=== PATIENT | male | born 1965 | race Caucasian/White ===

== ENCOUNTER 2019-11-06 10:15 | Outpatient (CLI) | payer OTHER, SELFPAY ==
--- NOTE | ~2019-11-06 | US_ITS ---
EXAMINATION: US renal BI DATE: 11/06/2019 10:48 INDICATION: Nonspecific abnormal renal function TECHNIQUE: Multiple ultrasound grayscale images of the kidneys were obtained. COMPARISON: None. FINDINGS: The right kidney measures 9.6 x 5.1 x 5.0 cm. The left kidney measures 10.5 x 4.6 x 5.8 cm. The kidne ys demonstrate normal echogenicity. There is no hydronephrosis in either kidney. No stones identifie d. Diffuse bladder wall thickening with mildly trabeculated mucosal surface which could be related to chronic outlet obstruction. Mild prostatomegaly measuring 3.7 x 3.1 x 3.1 cm. IMPRESSION: 1. Normal kidneys without hydronephrosis. 2. Mild trabecular bladder wall thickening likely related to chronic outlet obstruction from the mild ly enlarged prostate. Reviewed, dictated and finalized at location A. IMPRESSION: 1. Normal kidneys without hydronephrosis. 2. Mild trabecular bladder wall thickening likely related to chronic outlet obs truction from the mildly enlarged prostate.
== END 2019-11-06 10:16 | disposition home or self-care (01) ==
PROVIDERS: PCP Family Medicine; Visit Provider Internal Medicine Nephrology
DX: R94.4 Abnormal results of kidney function studies (principal); N32.9 Bladder disorder, unspecified
CPT/HCPCS: 76775

== ENCOUNTER 2020-01-25 08:03 | Outpatient (CLI) | payer OTHER, SELFPAY ==
--- NOTE | 2020-01-25 08:53 | ECG_ITS ---
Measurements Intervals Martin Rate: 67 P: 53 MO: 152 QRS: 42 QRSD: 98 T: 46 QT: 415 QTc: 440 Interpretive Statements SINUS RHYTHM NORMAL ECG Electronically Signed On 01-25-2020 9:10:30 CDT by Rafita Haney D.O.
[2020-01-25 09:19] LABS: Basophils Absolute Auto 0.1 K/mm3 (0.0-0.1); Basophils Percent Auto 0.8 % (0.2-1.2); Eosinophils Absolute Auto 0.3 K/mm3 (0-0.3); Eosinophils Percent Auto 4.1 % (0-4.4); Hematocrit 37.6 % (42.0-52.0); Hemoglobin 12.8 g/dL (14.0-18.0); Immature Granulocyte Absolute 0.03 K/mm3 (0.00-0.031); Immature Granulocyte Percent A 0.5 % (0-0.5); Lymphocytes Absolute Auto 1.98 K/mm3 (0.9-3.2); Lymphocytes Percent Auto 30.4 % (18.3-44.2); Mean Corpuscular Hemoglobin 32.7 pg (26-34); Mean Corpuscular Volume 95.9 fl (80-100); Mean Platelet Volume 9.7 fl (7.4-10.4); Monocytes Absolute Auto 0.5 K/mm3 (0.1-0.6); Monocytes Percent Auto 7.7 % (2.6-8.5); Neutrophils Absolute Auto 3.7 K/mm3 (1.3-6.7); Neutrophils Percent Auto 56.5 % (45.5-73.1); Platelet Count Result 240 k/mm3 (150-375); Red Blood Count 3.92 M/mm3 (4.6-6.20); Red Cell Distribution Width 12.9 % (11.5-14.5); White Blood Count 6.5 K/mm3 (4.5-10.0)
[2020-01-25 09:29] LABS: Hemoglobin A1C 5.3 % (<5.7)
[2020-01-25 09:33] LABS: Albumin Level 4.3 g/dL (3.5-5.1); Estimated Glomerular Filt Rate 48; Glucose 111 mg/dL (75-110)
[2020-01-25 09:38] LABS: Urine Cotinine POSITIVE
== END 2020-01-25 08:04 | disposition home or self-care (01) ==
PROVIDERS: PCP Family Medicine; Visit Provider Orthopaedic Surgery
DX: M17.0 Bilateral primary osteoarthritis of knee (principal); Z01.818 Encounter for other preprocedural examination
CPT/HCPCS: 36415; 80307; 82040; 82565; 82947; 83036; 85025; 86850; 86900; 86901; 87081; 93005

== ENCOUNTER 2020-01-25 10:12 | Outpatient (CLI) | payer OTHER, SELFPAY ==
--- NOTE | ~2020-01-25 | NM_ITS ---
EXAMINATION: NM monet stress w perfusion DATE: 01/25/2020 12:42 INDICATION: Preoperative cardiovascular exam with cardiac risk factors of hypertension and hyperlipid emia. TECHNIQUE: Rest images were obtained following intravenous administration of 8 mCi Tc99m tetrofosmin (Myoview). The patient was infused intravenously with Lexiscan (Regadenoson). Then, 27 mCi Tc99m tetr ofosmin (Myoview) was administered intravenously, and stress images were obtained. Data was reconstru cted into short axis and horizontal and vertical long axis SPECT images. Gated SPECT images were also obtained. COMPARISON: None. FINDINGS: There is no definite reversible or fixed perfusion abnormality to suggest ischemia or infar ction. There is normal left ventricular chamber size, wall motion and ejection fraction. Left ventr icular ejection fraction measures >70%. IMPRESSION: 1. Normal myocardial perfusion at rest and during stress. 2. Left ventricular ejection fraction measuring >70%. Reviewed, dictated and finalized at location A.
--- NOTE | 2020-01-25 11:01 | EST_ITS ---
Patient Info Name: Michael Garcia Age: 54 years : 1965 Gender: Male Ht: 68 in Wt: 196 lbs BSA: 2.09 m2 HR: 54 bpm BP: 102 / 61 mmHg Exam Date: 01/25/2020 11:42 AM Exam Location: [facility] Stress Patient Status: Outpatient Admit Date: 01/25/2020 Staff Ordering Physician: Michelle Castillo NP Attending Provider: RAFITA HANEY Exercise Technologist: Bhavya Carlos RDCS Exercise Physician: Rafita Haney DO Exam Type: CA stress monet w NM Study Info Indications - pre-op knee surgery A regadenoson stress test was performed. Summary 1. 1. Negative lexiscan stress test for ischemic ST changes by ECG criteria. 2. 2. Stable hemodynamics throughout the test. 3. 3. Nuclear scan to follow and will be reported separately. Please correlat with it. 4. 4. Patient informed of the above results. Protocol: Lexiscan Stress ECG Details Stage: REST Duration (min): 1 min : 13 sec HR (bpm): 53 SBP (mmHg): 102 DBP (mmHg): 61 Stage: REST Duration (min): 8 min : 41 sec HR (bpm): 57 SBP (mmHg): 102 DBP (mmHg): 61 Stage: STAGE 1 Duration (min): 0 min : 59 sec HR (bpm): 75 SBP (mmHg): 116 DBP (mmHg): 61 Stage: RECOVERY Duration (min): 1 min : 0 sec HR (bpm): 89 SBP (mmHg): 113 DBP (mmHg): 67 Stage: RECOVERY Duration (min): 2 min : 0 sec HR (bpm): 78 SBP (mmHg): 114 DBP (mmHg): 67 Stage: RECOVERY Duration (min): 3 min : 0 sec HR (bpm): 76 SBP (mmHg): 103 DBP (mmHg): 65 Stage: RECOVERY Duration (min): 3 min : 22 sec HR (bpm): 75 SBP (mmHg): 103 DBP (mmHg): 65 Rest HR: 57 bpm Peak HR: 93 bpm Rest Sys BP: 102 mmHg Peak Sys BP: 116 mmHg Max Pred HR: 164 bpm % Max Pred HR: 57 % Target HR: 139 bpm Max RPP: 10,788 bpm*mmHg Termination Reason: Completed protocol Cardiac Symptoms: SOB, stomach cramp, heaviness of legs and arms Total Time: 1 min : 0 sec Rest Dubon BP: 61 mmHg Peak Dubon BP: 61 mmHg Total Dose: 0.4 mg Resting ECG Sinus rhythm. Stress ECG No ST changes. Arrhythmias None. Report Signatures
== END 2020-01-25 10:13 | disposition home or self-care (01) ==
PROVIDERS: PCP Family Medicine; Visit Provider Nurse Practitioner
DX: Z01.810 Encounter for preprocedural cardiovascular examination (principal)
CPT/HCPCS: 78452; 93017; A9502; J2785

== ENCOUNTER 2020-03-21 08:07 | Outpatient (CLI) | payer OTHER, SELFPAY ==
[2020-03-21 08:36] LABS: Basophils Absolute Auto 0.1 K/mm3 (0.0-0.1); Basophils Percent Auto 0.8 % (0.2-1.2); Eosinophils Absolute Auto 0.1 K/mm3 (0-0.3); Eosinophils Percent Auto 1.6 % (0-4.4); Hematocrit 37.8 % (42.0-52.0); Immature Granulocyte Absolute 0.01 K/mm3 (0.00-0.031); Immature Granulocyte Percent A 0.2 % (0-0.5); Lymphocytes Absolute Auto 1.91 K/mm3 (0.9-3.2); Lymphocytes Percent Auto 30.1 % (18.3-44.2); Mean Corpuscular HGB Conc 34.4 g/dl (32-36); Mean Corpuscular Hemoglobin 32.6 pg (26-34); Mean Corpuscular Volume 94.7 fl (80-100); Mean Platelet Volume 9.7 fl (7.4-10.4); Monocytes Absolute Auto 0.4 K/mm3 (0.1-0.6); Monocytes Percent Auto 6.1 % (2.6-8.5); Neutrophils Absolute Auto 3.9 K/mm3 (1.3-6.7); Neutrophils Percent Auto 61.2 % (45.5-73.1); Platelet Count Result 274 k/mm3 (150-375); Red Blood Count 3.99 M/mm3 (4.6-6.20); Red Cell Distribution Width 12.1 % (11.5-14.5); White Blood Count 6.4 K/mm3 (4.5-10.0)
[2020-03-21 08:46] LABS: Albumin Level 4.3 g/dL (3.5-5.1); Estimated Glomerular Filt Rate 52; Glucose 125 mg/dL (75-110)
[2020-03-21 09:06] LABS: Urine Cotinine NEGATIVE
== END 2020-03-21 08:08 | disposition home or self-care (01) ==
LOC: ANHSURGERY 08:09
PROVIDERS: PCP Family Medicine; Visit Provider Orthopaedic Surgery
DX: M17.0 Bilateral primary osteoarthritis of knee (principal); Z01.812 Encounter for preprocedural laboratory examination
CPT/HCPCS: 80307; 82040; 82565; 82947; 85025; 86850; 86900; 86901; 87081

== ENCOUNTER 2020-03-29 02:43 | Outpatient (CLI) | payer OTHER, SELFPAY ==
[2020-03-29 23:12] LABS: SARS-CoV-2 RNA PCR Negative
== END 2020-03-29 02:44 | disposition home or self-care (01) ==
LOC: ANHCOVIDDT 02:43
PROVIDERS: PCP Family Medicine; Visit Provider Orthopaedic Surgery
DX: Z01.812 Encounter for preprocedural laboratory examination (principal); Z20.828 Contact with and (suspected) exposure to other viral communicable diseases
CPT/HCPCS: 87635; C9803; U0003

== ENCOUNTER 2020-04-01 00:36 | Day surgery (SDC) | payer OTHER, SELFPAY ==
[2020-01-25 08:13] VITALS: BMI 29.8
[2020-01-25 08:50] VITALS: BP 119/70; PULSE 71; RESP 18; TEMP 37.3; O2SAT 98
[2020-03-18 09:57] VITALS: BMI 29.8
[2020-04-01] VITALS (13 sets, daily range): BP systolic 117–159; BP diastolic 60–91; PULSE 73–107; RESP 11–18; TEMP 36.3–37.4; O2SAT 93–100
--- NOTE | ~2020-04-01 | XR_ITS ---
EXAMINATION: XR knee LT 2V DATE: 04/01/2020 10:30 INDICATION: Postoperative evaluation following left total knee arthroplasty. TECHNIQUE: Anteroposterior and lateral views of the left knee were obtained. COMPARISON: None. FINDINGS: Left total knee arthroplasty with patellar resurfacing appears well seated and in near anatomic align ment. No fractures identified. Expected postoperative subcutaneous and intra-articular gas. IMPRESSION: 1. Left total knee arthroplasty, negative for postoperative purposes. Reviewed, dictated and finalized at location B.
[2020-04-01] MEDS: LACTATED RINGERS 1,000 ML 30 ML IV CONT ×2 (06:50→10:07)
--- NOTE | 2020-04-01 07:02 | WPDANESEPPF ---
Anes - Initial Pre Proc Eval Procedure: Operation Date: 04/01/20 07:30 Proposed Procedures p Left Total Knee Arthroplasty, Right Knee Injection/Aspiration - Brendon Bai MD Date/Time: 04/01/20 07:02 Surgeon: Brendon Bai MD Pre Op Diagnosis: OA Bilateral Knee Patient Data Age: 54 Gender: M Height: 5 ft 8 in Weight: 89 kg Last Vital Signs Temp 37.3 C 01/25/20 08:50 Pulse 71 01/25/20 08:50 Resp 18 01/25/20 08:50 BP 119/70 01/25/20 08:50 Pulse Ox 98 01/25/20 08:50 Allergies Allergy/AdvReac Type Severity Reaction Status Date / Time codeine AdvReac Severe Nausea Verified 03/18/20 09:54 NSAIDS (Non-Steroidal AdvReac Unknown elevated Verified 03/30/20 09:20 Anti-Inflamma creatinine Home Medications Medication Instructions Recorded Confirmed Type aspirin 81 mg tablet,delayed 81 mg PO DAILY 06/01/19 03/21/20 History release acetaminophen 650 mg 1,300 mg PO Q12H PRN tablet 12/05/19 03/21/20 History tablet,extended release atorvastatin 20 mg tablet 20 mg PO DAILY #90 tablet 12/05/19 03/21/20 Rx omeprazole magnesium 20 mg 20 mg PO DAILY 12/05/19 03/21/20 History tablet,delayed release rivaroxaban 10 mg tablet 10 mg PO DAILY #13 tablet 01/11/20 03/21/20 Rx cholecalciferol (vitamin D3) 125 mcg PO DAILY 01/25/20 03/21/20 History tramadol 50 mg tablet 50 mg PO QID PRN #120 tablet 03/11/20 03/21/20 Rx irbesartan [Avapro] See Rx Instructions .ROUTE .COMPLEX 03/18/20 03/21/20 History baclofen 10 mg tablet 10 mg PO BID #90 tablet 03/25/20 Rx Patient hx anesthesia problems: none Family hx anesthesia problems: none PMFSH Past Medical History Medical History BMI 27.0-27.9,adult Degenerative arthritis of knee, bilateral Encounter for screening for malignant neoplasm of prostate Hyperlipidemia Hypertension Knee pain, bilateral Lumbar disc disease Renal insufficiency Surgical History Surgical History History of cataract surgery Bilateral History of repair of rotator cuff 2011 Family History Family History Father Hypertension Family history of diabetes mellitus in first degree relative Mother Family history of diabetes mellitus in first degree relative Social History Social History Smoking packs per day: 1 Smoking cigarettes per day: 20.0 Years smoked: 11 Smoking pack-years: 11.00 Smoking status: Former smoker Tobacco type: cigarettes Second hand tobacco smoke exposure: Yes ([employer]) Smoking end date: 09/20/19 Additional smoking assessment comments: STATES NO FORM OF TOBACCO USUAGE SINCE SURGERY CANCELLED FOR JANUARY 2020 Alcohol intake: current Living arrangements: with family Additional living arrangements comments: & son 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 Questions were solicited and answers provided to the satisfaction of the patient/family/POA.
[2020-04-01] MEDS: TRANEXAMIC ACID 1,000MG/ISO100 1,000 MG/100 ML BAG 200 MG IVPB (07:04)
[2020-04-01] MEDS: ACETAMINOPHEN 500 MG TABLET 1000 MG PO ×3 (07:13→22:21)
--- NOTE | 2020-04-01 07:14 | WPDHPUPDATE1 ---
History and Physical Update Update Date/Time: 04/01/20 07:14 History and Physical has been reviewed, including an updated exam of the patient. There are NO changes in the patient's condition. Risks, benefits, and alternatives have been discussed and questions answered. Patient agrees to proceed with procedure.
[2020-04-01] MEDS: ceFAZolin 2 GM/D5W 50 ML 2 GM/50 ML BAG IVPB ×3 (07:27→22:21)
--- NOTE | 2020-04-01 07:28 | WPDANESPNB ---
Anes - Peripheral Nerve Block Date/Time: 04/01/20 07:28 I have discussed with the patient/family/POA the placement of a peripheral nerve block for post-operative pain management, including associated risks, benefits, complications, and side effects. Alternative methods of post-operative analgesia were detailed. Questions were solicited and answers provided to the satisfaction of the patient/family/POA. Time-Out: A pre-procedural Time-Out was completed immediately before starting the procedure and confirmed: Patient Identification, Site, Procedure, Patient Position and the Availability of Requisite Equipment. Clinical Indications: Acute post-operative pain management requested by the operative surgeon. Nerve Block Insertion Note Anes-nerve block: adductor canal left Patient position: supine Skin prep: chlorhexidine Needle: 22 gauge, stimulating, insulated echogenic needle. Needle length: 80 mm Technique: ultrasound Technique comment: mid2mg,[id number] Injectate: bupivacaine 0.5% with epi 5 mcg/ml (30ml) Observations: tolerated well Complications: none Procedure start time:: 715 Procedure end time:: 722
[2020-04-01] MEDS: methylPREDNISolone ACETATE 80 MG/ML VIAL IM (07:35)
[2020-04-01] MEDS: BUPIVACAINE/EPINEPHRINE 0.25% 50 ML VIAL INFILTRATE (08:03)
[2020-04-01] MEDS: TRANEXAMIC ACID 1,000 MG/10 ML AMPUL 1000 MG TOPICAL (08:04)
[2020-04-01] MEDS: GENTAMICIN BONE CEMENT REFOBACIN 1 EACH TOPICAL (08:59)
[2020-04-01] MEDS: ceFAZolin SODIUM 1 GM VIAL IV PUSH (09:35)
--- NOTE | 2020-04-01 10:02 | PM.PROC ---
Procedure Note - Detailed Date of procedure: 04/01/20 Pre-op diagnosis: OA Bilateral Knee Post-op diagnosis: same Procedure performed: Left total knee replacement; intra-articular injection right knee Description of procedure: The patient was identified and proper site identified. In the preop holding area the anesthesia team performed a left knee sub sartorial block after which the patient was taken to the operating room and transferred to the OR table positioning supine taking care to pad the torso and extremities. After general anesthetic induction and intubation a nonsterile tourniquet was placed high on the left thigh. While this was being done the right knee was injected intra-articularly using sterile technique with 2 mL of 1% lidocaine and 80 mg of Depo-Medrol. The left lower extremity was prepped and draped in the usual sterile fashion. The extremity was exsanguinated and with the knee flexed tourniquet was inflated to 300 mmHg remaining up for approximately 71 minutes. An anterior midline incision was made and a modified medial parapatellar approach was used. Infra and suprapatellar fat pads were excised. Patella was resected leaving 15 mm thickness and prepared for the size 34 round three peg component. Using the intramedullary guide the distal femur was cut in the proper orientation for the size 67.5 femoral component. Using the extramedullary guide the tibia was cut perpendicular to the long axis protecting collateral ligaments and popliteal structures. It was sized to a 71. Flexion and extension gaps were balanced. Trial reduction was undertaken and the weight-bearing line was noted to passed through the center of the joint. Proximal tibia was drilled and punched in the proper orientation for the real component. Trial components were removed. The bone surfaces were washed with pulsatile lavage and dried. The real components were cemented simultaneously. The knee was held in extension and the patella held clamped until the cement had cured. Excess cement was removed from the joint. After trialing it was determined that the 11 mm insert gave full range of motion from 0-125 degrees of flexion and the patella tracked in the femoral groove with no lift-off. After final lavage the joint, the real size 11 insert was placed and secured with a locking bar. A Betadine and saline wash was placed into the wound and allowed to sit for approximately 3 minutes and then evacuated. Periarticular tissues were infiltrated with 60 cc of the arthroplasty solution. 1 g of tranexamic acid was left in the wound. The extensor mechanism was repaired with #2 Vicryl suture and 0 looped PDS suture. Subcu was reapproximated with two 0 strata fix and tissue adhesive for the skin. A sterile dressing was applied. He tolerated the procedure well, was awakened and extubated, transferred to the bed and was taken to recovery area in stable condition. There were no known intraoperative complications. Perioperative antibiotics were administered. Anesthesia: GLMA Surgeon: Brendon Bai MD Pouch Making Machine Operator: Yris Mccord Estimated blood loss (mL): 150 Tourniquet time (min): 71 Drains: No Packing: No Pathology: none sent Complications: No immediate complications Condition: stable Disposition: PACU
[2020-04-01] MEDS: fentaNYL CITRATE INJ (*CRX) 100 MCG/2 ML VIAL 25 MCG IV PUSH ×6 (10:25→11:10)
--- NOTE | 2020-04-01 11:33 | PC.NURSE ---
This patient, Michael Garcia, was admitted to Medical Room 248-. Patient/family oriented to hospital policies and general routines including ID bracelet, bed and alarms, visiting hours, pain management, procedures, bathroom and other care routines, personal items, smoking policy, room service/diet, and visiting hours. Valuables list has been completed. Information on how to activate the Rapid Response Team has been discussed. Patient/Family are encouraged to report perceived risks to care and to ask questions if they do not understand what they are told or what they should do.
[2020-04-01] MEDS: oxyCODONE HCL (*CRX) 5 MG TAB IR PO ×3 (13:42→20:20)
[2020-04-01] MEDS: DOCUSATE SODIUM 100 MG CAPSULE PO (18:28)
--- NOTE | 2020-04-01 20:00 | PM.IMCN ---
Assessment and Plan Assessment and plan (1) S/P total knee arthroplasty: Code(s): Z96.659 - Presence of unspecified artificial knee joint Status: Acute Assessment and Plan: postop care per Dr. purdy. DVT prophylaxis per Dr. ortez it looks like he will be placed on Xarelto. PT OT per Dr. purdy. Pain management per Dr. purdy. (2) Hypertension: Code(s): I10 - Essential (primary) hypertension Status: Chronic Assessment and Plan: Patient's blood pressure tonight was 159/85 so I did resume his irbesartan (3) Hyperlipidemia: Code(s): E78.5 - Hyperlipidemia, unspecified Status: Chronic Assessment and Plan: atorvastatin Was resumed. HPI Data of Consult Consult date: 04/01/20 Requesting Physician: Brendon Purdy MD Primary Care Provider: Isabella Pro MD Consult Narrative Narrative: Michael Garcia is a 54 year old male Who has a history of bilateral primary Osteoarthritis of bilateral knees. Patient had preop workup to have the left total knee replaced today and it is going to have the right knee performed later. The patient had a left total knee arthroplasty today per Dr. purdy please see the operative note. Please see anesthesia note as well. The patient did have a nerve block. He has already been up and walking around without any problems. The patient stated that he had a Lexiscan which was negative for preop workup. Estimated blood loss was 150 no immediate complications were noted on the operative report. I think orthopedics for the opportunity to consult on this pleasant gentleman. The patient stated that he has quit smoking and is doing well at this smoking cessation. the patient stated that he is tried conservative measures such as having his knees drained and exercises and cortisol shots. Patient stated with essentially [id number]. He was having difficulty moving with daily life. 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 Date of consult is 04/01/2020 Review of Systems Review of Systems: All systems reviewed & are unremarkable except as noted in HPI and below Constitutional: Constitutional: Reports as per HPI and Reports no additional constitutional complaints Eyes: Eyes: Reports as per HPI and Reports no additional eye complaints ENT: Reports system reviewed and no additional complaints, except as documented and Reports Normal hearing present Cardiovascular: Cardiovascular: Reports no additional cardiovascular complaints Respiratory: Respiratory: Reports no additional respiratory complaints and Reports no additional respiratory complaints Gastrointestinal: Gastrointestinal: Reports as per HPI and Reports no additional gastrointestinal complaints Musculoskeletal: Musculoskeletal: Reports no additional musculoskeletal complaints Integumentary/Breasts: Skin/Breast: Reports system reviewed and no additional complaints, except as docu and Reports as per HPI Neurologic: Reports system reviewed and no additional complaints, except as documented, Reports as per HPI and Reports Normal hearing present Psychiatric: Psychiatric: Reports no additional psychiatric complaints and Reports as per HPI Endocrine: Endocrine: Reports no additional endocrine complaints Hematologic/Lymphatic: Hematologic/Lymphatic: Reports no additional hematologic/lymphatic complaints Allergic/Immunologic: Allergic/Immunologic: Reports no additional allergic/immunologic complaints PMFSH Past Medical History Medical History BMI 27.0-27.9,adult Degenerative arthritis of knee, bilateral Encounter for screening for malignant neoplasm of prostate Hyperlipidemia Hypertension Knee pain, bilateral Lumbar disc disease Renal insufficiency Surgical History Surgical History (Updated 04/01/20 @ 20:09 by Theodora Bowman NP) History of cataract surgery Bilateral History of repair of rotator cu
[2020-04-02] MEDS: oxyCODONE HCL (*CRX) 5 MG TAB IR PO ×4 (00:05→12:31)
[2020-04-02 00:45] VITALS: BP 156/82; PULSE 89; RESP 16; TEMP 37.2; O2SAT 96
[2020-04-02 04:59] VITALS: BP 107/57; PULSE 86; RESP 16; TEMP 37.2; O2SAT 98
[2020-04-02] MEDS: ACETAMINOPHEN 500 MG TABLET 1000 MG PO (05:38)
[2020-04-02 06:05] LABS: Basophils Percent Auto 0.1 % (0.2-1.2); Hematocrit 32.9 % (42.0-52.0); Hemoglobin 11.1 g/dL (14.0-18.0); Immature Granulocyte Absolute 0.08 K/mm3 (0.00-0.031); Immature Granulocyte Percent A 0.5 % (0-0.5); Lymphocytes Absolute Auto 1.27 K/mm3 (0.9-3.2); Mean Corpuscular HGB Conc 33.7 g/dl (32-36); Mean Corpuscular Hemoglobin 32.3 pg (26-34); Mean Corpuscular Volume 95.6 fl (80-100); Mean Platelet Volume 10.1 fl (7.4-10.4); Monocytes Absolute Auto 0.5 K/mm3 (0.1-0.6); Monocytes Percent Auto 3.1 % (2.6-8.5); Neutrophils Percent Auto 88.3 % (45.5-73.1); Platelet Count Result 211 k/mm3 (150-375); Red Blood Count 3.44 M/mm3 (4.6-6.20); Red Cell Distribution Width 12.2 % (11.5-14.5); White Blood Count 15.9 K/mm3 (4.5-10.0)
[2020-04-02] MEDS: ceFAZolin 2 GM/D5W 50 ML 2 GM/50 ML BAG IVPB (06:07)
[2020-04-02 06:31] LABS: Anion Gap 7 mmol/L (8-16); Blood Urea Nitrogen 24 mg/dL (9-20); Calcium 9.1 mg/dL (8.4-10.2); Carbon Dioxide 27 mmol/L (22-30); Chloride 101 mmol/L (98-107); Estimated CRCL calculation 62 ml/min; Estimated Glomerular Filt Rate 57; Glucose 137 mg/dL (75-110); Potassium 4.4 mmol/L (3.4-5.0); Sodium 135 mmol/L (137-145)
--- NOTE | 2020-04-02 07:28 | PM.PNORT ---
Progress Note: A&P Assessment and Plan (1) S/P total knee arthroplasty: Qualifiers: Laterality: left Qualified Code(s): Z96.652 - Presence of left artificial knee joint Code(s): Z96.659 - Presence of unspecified artificial knee joint Status: Acute (2) Degenerative arthritis of knee, bilateral: Qualifiers: Osteoarthritis type: primary Qualified Code(s): M17.0 - Bilateral primary osteoarthritis of knee Code(s): M17.0 - Bilateral primary osteoarthritis of knee Status: Chronic Assessment and Plan: 54-year-old male postop day one left knee replacement, right knee injection and doing very well. Surgery was discussed with him in detail. Questions answer and instructions reviewed. Plan home today after second physical therapy. Follow up with me in the office in two weeks. Time Spent With Patient Time with patient: 15 - 25 minutes Subjective Subjective Date/Time Seen: 04/02/20 07:28 Post Op day: 1 Principal diagnosis: Status post left total knee replacement, right knee injection Interval history: 54-year-old male who is postop day one left knee replacement, right knee injection. Uneventful overnight. Tolerated his first therapy just fine yesterday. Review of Systems Constitutional: Constitutional: Denies chills and Denies fever(s) Eyes: Eyes: Reports no additional eye complaints ENT: Reports system reviewed and no additional complaints, except as documented Cardiovascular: Cardiovascular: Denies chest pain and Denies dyspnea on exertion Respiratory: Respiratory: Reports no additional respiratory complaints and Denies dyspnea on exertion Gastrointestinal: Gastrointestinal: Denies abdominal pain and Denies bloating Exam Const: General: cooperative, no acute distress and alert Nutritional Appearance: well nourished Orientation/consciousness: patient oriented x3 Limitations: no limitations HENMT: Head: normal to inspection Ears: hearing grossly normal bilaterally Face and sinus: face symmetric Mouth: Yes moist mucous membranes Teeth and gingiva: fair dentition Eyes: Alignment and Position: alignment normal and position normal Sclera: sclerae normal Neck: Neck: normal visual inspection Chest: Chest palpation & inspection: normal inspection of the chest Resp: Effort & Inspection: normal respiratory effort and able to speak in complete sentences GI: Inspection: other ( Nondistended) Skin: General skin exam: normal color Rashes: no rashes Neuro: General: patient oriented x3 Cognition (Neuro): normal cognition Speech: normal speech Gait exam (Neuro): Other gait observations present Motor exam (neuro): Other motor observations present ( neurovascular grossly intact left lower extremity) Sensory Exam: normal sensation Extrem: General: normal to inspection and other Other: Exam of the left knee wound shows it to be dry. Very little swelling and no erythema about the left knee. Right knee exam reveals no swelling. There is some crepitus, but no tenderness. Psych: Appearance: grossly normal Mental Status: mental status grossly normal Objective Data Vital Signs Vital Signs: Vital Signs - 24 hr 04/01/20 08:08 04/01/20 10:07 04/01/20 10:15 Temperature 99.3 F 98.3 F Pulse Rate 83 101 H 105 H Respiratory Rate 18 12 11 L Blood Pressure 138/80 146/83 H 150/85 H Pulse Oximetry 98 97 97 04/01/20 10:30 04/01/20 10:45 04/01/20 10:47 Temperature Pulse Rate 107 H 105 H Respiratory Rate 16 16 Blood Pressure 128/91 H 152/88 H 122/81 Pulse Oximetry 96 93 04/01/20 11:00 04/01/20 11:25 04/01/20 11:40 Temperature 97.6 F 97.4 F L Pulse Rate 90 95 77 Respiratory Rate 12 18 16 Blood Pressure 117/60 145/86 H 144/90 H Pulse Oximetry 96 97 98 04/01/20 12:10 04/01/20 18:00 04/01/20 20:00 Temperature 97.6 F 98.4 F Pulse Rate 73 96 90 Respiratory Rate 18 18 16 Blood Pressure 141/84 H 159/85 H Pulse Oximetry 97 100 97 04/01/20 20:5
--- NOTE | 2020-04-02 07:37 | PM.DS ---
DS: Admitting Diagnosis Admitting Diagnosis Admitting Diagnosis: OA Bilateral Knee DS: Discharge Diagnosis Discharge Diagnosis (1) S/P total knee arthroplasty: Qualifiers: Laterality: left Qualified Code(s): Z96.652 - Presence of left artificial knee joint Code(s): Z96.659 - Presence of unspecified artificial knee joint Status: Acute (2) Degenerative arthritis of knee, bilateral: Qualifiers: Osteoarthritis type: primary Qualified Code(s): M17.0 - Bilateral primary osteoarthritis of knee Code(s): M17.0 - Bilateral primary osteoarthritis of knee Status: Chronic Assessment and Plan: Patient has outpatient therapy starting in one week. He is going to exercise on his own between now and then. He has a follow-up with me in approximately two weeks. He was instructed to call with any questions prior to follow-up. DS: Summary Hospital Course Reason for hospitalization: Postoperative pain control and to initiate physical therapy Hospital Course: Following the patient's surgery he was admitted to the floor to initiate physical therapy and also for pain control. He had has done very well and is going to be discharged home. He has follow-up with me in two weeks. Status at Discharge Functional status at discharge: uses cane/walker Time Spent with Patient Time attestation: Total time spent providing and/or coordinating discharge services: Exam Const: General: cooperative, no acute distress and alert Nutritional Appearance: well nourished Orientation/consciousness: patient oriented x3 Limitations: no limitations HENMT: Head: normal to inspection Ears: hearing grossly normal bilaterally Face and sinus: face symmetric Mouth: Yes moist mucous membranes Teeth and gingiva: fair dentition Eyes: Alignment and Position: alignment normal and position normal Sclera: sclerae normal Neck: Neck: normal visual inspection Chest: Chest palpation & inspection: normal inspection of the chest Resp: Effort & Inspection: normal respiratory effort and able to speak in complete sentences GI: Inspection: other ( Nondistended) Skin: General skin exam: normal color Rashes: no rashes Neuro: General: patient oriented x3 Cognition (Neuro): normal cognition Speech: normal speech Gait exam (Neuro): Other gait observations present Motor exam (neuro): Other motor observations present ( neurovascular grossly intact left lower extremity) Sensory Exam: normal sensation Extrem: General: normal to inspection and other Other: Exam of the left knee wound shows it to be dry. Very little swelling and no erythema about the left knee. Right knee exam reveals no swelling. There is some crepitus, but no tenderness. Psych: Appearance: grossly normal Mental Status: mental status grossly normal DS: Data Data Completed and Pending Labs on day of discharge: Labs from last 24 hours 04/02/20 04/02/20 05:15 05:15 WBC 15.9 H RBC 3.44 L Hgb 11.1 L Hct 32.9 L MCV 95.6 MCH 32.3 MCHC 33.7 RDW 12.2 Plt Count 211 MPV 10.1 Immature Gran % (Auto) 0.5 Neut % (Auto) 88.3 H Lymph % (Auto) 8.0 L [place] % (Auto) 3.1 Eos % (Auto) 0.0 Baso % (Auto) 0.1 L Lymph # (Auto) 1.27 [place] # (Auto) 0.5 Eos # (Auto) 0.0 Baso # (Auto) 0.0 Abs Immat Gran (auto) 0.08 H Absolute Neuts (auto) 14.0 H Absolute Nucleated RBC 0.0 Nucleated RBC % 0.0 Sodium 135 L Potassium 4.4 Chloride 101 Carbon Dioxide 27 Anion Gap 7 L BUN 24 H Creatinine 1.30 Estim Creat Clear Calc 62 Estimated GFR 57 L Glucose 137 H Calcium 9.1 Discharge Plan Discharge Patient Disposition: Home, Self-Care Discharge Instructions: 3 times daily for 20 minutes each time, reclining in bed with ice packs over the incision and a pillow underneath the affected calf. Your wound is glued so it is okay to get into the shower and get the wound wet. Be sure to read through a
--- NOTE | 2020-04-02 08:01 | WPDANESPN ---
Anes - Prog Note Post-Op Date/Time: 04/02/20 08:01 Cardiovascular status: normal Respiratory status: normal Airway patency: baseline Mental status: baseline Post-Op hydration status: normal Vital Signs: Last Vital Signs Temp 37.2 C 04/02/20 04:59 Pulse 86 04/02/20 04:59 Resp 16 04/02/20 04:59 BP 107/57 L 04/02/20 04:59 Pulse Ox 98 04/02/20 04:59 Pain Score (VAS): 0 I/O: Intake & Output 04/01/20 04/02/20 04/02/20 23:59 07:59 15:59 Intake Total 490 300 Output Total 1200 Balance 490 -900 Laboratory Tests 04/02/20 05:15 04/02/20 05:15 04/02/20 04/02/20 05:15 05:15 WBC 15.9 H RBC 3.44 L Hgb 11.1 L Hct 32.9 L MCV 95.6 MCH 32.3 MCHC 33.7 RDW 12.2 Plt Count 211 MPV 10.1 Immature Gran % (Auto) 0.5 Neut % (Auto) 88.3 H Lymph % (Auto) 8.0 L [place] % (Auto) 3.1 Eos % (Auto) 0.0 Baso % (Auto) 0.1 L Lymph # (Auto) 1.27 [place] # (Auto) 0.5 Eos # (Auto) 0.0 Baso # (Auto) 0.0 Abs Immat Gran (auto) 0.08 H Absolute Neuts (auto) 14.0 H Absolute Nucleated RBC 0.0 Nucleated RBC % 0.0 Sodium 135 L Potassium 4.4 Chloride 101 Carbon Dioxide 27 Anion Gap 7 L BUN 24 H Creatinine 1.30 Estim Creat Clear Calc 62 Estimated GFR 57 L Glucose 137 H Calcium 9.1 Post-procedural complaints: none Patient Feedback: Patient satisfied with anesthetic care.
[2020-04-02] MEDS: DOCUSATE SODIUM 100 MG CAPSULE PO (08:16)
[2020-04-02] MEDS: PANTOPRAZOLE 40 MG TABLET PO (08:17)
[2020-04-02] MEDS: CHOLECALCIFEROL 1,000 UNITS TABLET 5000 UNITS PO (08:17)
[2020-04-02] MEDS: ATORVASTATIN 20 MG TABLET PO (08:17)
[2020-04-02] MEDS: polyethylene glycoL 3350 17 GM POWD.PACK PO (08:17)
--- NOTE | 2020-04-02 09:55 | PM.IMPN ---
Progress Note: A&P Assessment and Plan (1) S/P total knee arthroplasty: Qualifiers: Laterality: left Qualified Code(s): Z96.652 - Presence of left artificial knee joint Code(s): Z96.659 - Presence of unspecified artificial knee joint Status: Acute Assessment and Plan: He is POD #1 left total knee arthroplasty by Dr. Bai. Patient tolerated the procedure well. Pain is well-controlled. He has participated with PT/OT. He will follow up with Dr. Bai in 2 weeks. Continue xarelto per Dr. Bai. (2) Hypertension: Code(s): I10 - Essential (primary) hypertension Status: Chronic Assessment and Plan: Blood pressures had been mildly elevated in the 150s systolic, which is likely due to pain and holding of antihypertensive agent. Irbesartan was resumed and will be continued. Blood pressure well controlled today. (3) Hyperlipidemia: Code(s): E78.5 - Hyperlipidemia, unspecified Status: Chronic Assessment and Plan: Continue atorvastatin. Additional Plan Continue MiraLax and Colace in light of pain medication to prevent opioid induce constipation. Patient will be discharged home today, per Dr. Bai. He is stable from medical standpoint. Thank you for allowing me to participate in this patient's care. Patient should continue home medications. We discussed continuing MiraLax and Colace at home, especially while on pain medications, to ensure regular bowel movements. Subjective Date/time seen: 04/02/20 09:55 Interval history: Date of service: 04/02/2020 Michael alonzo is a 54-year-old male with a history degenerative arthritis now s/p left knee replacement, hyperlipidemia, and hypertension who is seen in follow-up for left total knee arthroplasty. He reports that he is feeling well today. He will be going home this afternoon after therapy. He has been participating in therapy and feels he is doing well. He transfers with contact guard only. His pain is well controlled at this time. His appetite has been good. He has been sleeping well. His last BM was 2 days ago. He is passing flatus. He denies urinary symptoms. He denies SOB, cough, chest pain, or palpitations. Denies abdominal pain, cramping, bloating, nausea, vomiting, fever, chills, dizziness, lightheadedness, weakness, bleeding, bruising. He has no additional concerns at this time. Review of Systems Review of Systems: Narrative: Twelve systems reviewed with pertinent positives and negatives as per HPI. Exam Narrative: Exam Narrative: Mr. Garcia is a well nourished, well appearing 54-year-old male who is sitting in a chair by the bedside. He appears comfortable and is in NARD. HR 86, BP 107/57, R 16, T 98.9?, 98% on room air Neuro: awake, alert and oriented x4, speech clear, no focal neuro deficits noted HEENMT: normocephalic, atraumatic, EOMI, sclerae anicteric, moist oral mucosa, tongue midline, nares patent Neck: supple, no lymphadenopathy Respiratory: clear to auscultation bilaterally, nonlabored breathing Cardio: regular rate, regular rhythm with S1-S2 Abdomen: protuberant, normoactive bowel sounds, soft, nontender to palpation, no rigidity or guarding Extremities: right knee in brace, left knee in brace with ice, soft, no edema, erythema, cyanosis, clubbing, or tenderness to palpation, PT pulses 2+ bilaterally Skin: no rashes or lesions, warm and dry Psych: appropriate mood and affect, judgment and insight intact Objective Data Vital Signs Vital Signs: Vital Signs - 24 hr 04/01/20 10:07 04/01/20 10:15 04/01/20 10:30 Temperature 98.3 F Pulse Rate 101 H 105 H 107 H Respiratory Rate 12 11 L 16 Blood Pressure 146/83 H 150/85 H 128/91 H Pulse Oximetry 97 97 96 04/01/20 10:45 04/01/20 10:47 04/01/20 11:00 Temperature Pulse Rate 105 H 90 Respiratory Rate 16 12 Blood Pressure 152/88 H 122/81 117/60 Pulse Oximetry 93 96 04/01/20 11:25 04/01/20 11:40 04/01/20 12:10 Te
[2020-04-02 10:00] VITALS: BP 151/75; PULSE 85; RESP 16; TEMP 37.1; O2SAT 99
[2020-04-02] MEDS: IRBESARTAN 150 MG TABLET 300 MG PO (11:45)
== END 2020-04-02 13:45 | disposition home or self-care (01) ==
LOC: ANHSURGERY 06:20 → ANH2MED 11:19
PROVIDERS: PCP Family Medicine; Visit Provider Orthopaedic Surgery
PROC: (CPT 27447; principal; 2020-04-01 07:30)
DX: M17.0 Bilateral primary osteoarthritis of knee (principal); G89.18 Other acute postprocedural pain; I10 Essential (primary) hypertension; E78.5 Hyperlipidemia, unspecified; Z79.01 Long term (current) use of anticoagulants; Z79.82 Long term (current) use of aspirin; Z87.891 Personal history of nicotine dependence
CPT/HCPCS: 27447; 20610; 64447; 36415; 73560; 80048; 85025; 87635; 97110; 97116; 97161; 97165; 97530; A9270; C1713; C1776; C9803; J0131; J0690; J1040; J1100; J2250; J2405; J2704; J3010; J7120; U0003

== ENCOUNTER 2020-05-29 10:00 | Outpatient (RCR) | payer OTHER, SELFPAY ==
--- NOTE | 2020-04-08 11:11 | PTOPEVAL ---
Thank you for referring Michael Garcia to [facility].? The patient is scheduled to be seen for therapy? 3x/week for 2 weeks then 2 x/week for 2 weeks (total of 4 weeks followed by re-assess for further therapy needs). Please review, sign, date and return this plan of care JUANJO. I agree with and certify that the following plan of care is medically necessary. Referring Physician Date Attending Provider: Brendon Bai MD Evaluation Outpatient Past Medical History Neurological History Hx Neurological Disorders No Significant History Cardiovascular History Hx Hypercholesterolemia Yes Hx Hypertension Yes Hx Other Cardiac Disorders Yes: WALKS 10,000 STEPS DAILY Respiratory History Hx Respiratory Disorders No Significant History Gastrointestinal History Hx Gastroesophageal Reflux Disease Yes Genitourinary History Hx Other Genitourinary Disorders Yes: SEES DR DORAN ELEVATED CREATININE D/T NSAIDS-10/25/2019 FF[facility] NOTE ON CHART Musculoskeletal History Hx Arthritis Yes: GENERALIZED Hx Back Pain Yes Hx Orthopedic Surgery Yes: 2010 RT ROTATOR CUFF REPAIR Hx Other Musculoskeletal Disorders Yes: BILAT OA KNEES Hematological History Hx Hematological Disorders No Significant History Endocrine History Hx Endocrine Disorders No Significant History HEENT History Hx Cataracts Yes: BILAT REMOVED Hx Other HEENT Disorders Yes: READING GLASSES Integumentary History Hx Skin Disorders No Significant History Reproductive History Hx Reproductive Disorders No Significant History Psychosocial History Hx Psychiatric Disorders No Significant History Pain History Has Past Pain Affected Your Daily Life Yes: KNEES Anesthesia History Hx Anesthesia Reactions No Significant History Diagnosis left TKA Onset 04/01/2020 Subjective Information Demarcus is here today 7 days post Query Text:As Reported By Patient/ op left TKA. He reports he is Family doing well. There is a significant amount of brusing. Working on knee extension and on edema. States that he understands the need to promote left knee extension Prior Level of Function Home Setting Environmental Barriers Railing, None,Stairs, Greater than 4 Pain Assessment Timing of Pain Assessment Timing of Pain Assessment Assessment Pain Scale Pain Scale Used Numeric (1 - 10) Self Report Pain Assessment Left Knee(s) Reported Pain Level 5 Pain Description Aching,Tightness Pain Frequency Acute,Continuous Lowest Pain
--- NOTE | 2020-05-01 10:55 | PTOPEVAL ---
PHYSICAL THERAPY PLAN OF CARE UPDATE AND PROGRESS REPORT Thank you for referring Michael Garcia to [facility].? The patient is scheduled to be seen for therapy? 2x/week for 4 weeks. Please review, sign, date and return this plan of care JUANJO. I agree with and certify that the following plan of care is medically necessary. Referring Physician Date Attending Provider: Brendon Bai MD Progress Diagnosis left TKA Onset 04/01/2020 Subjective Information Demarcus is here today 4weeks post Query Text:As Reported By Patient/ op left TKA. Just came from Family his doctor's appointment and doctor was pleased with ROM. Overall, continues to do well. Continues to walk with a cane. Self Report Pain Assessment Left Knee(s) Reported Pain Level 3 Pain Description Tightness Pain Score Pain Score 3: Self Report Interventions Used Interventions Used By Clinicians Electrical Stimulation, Exercise,Heat Lower Extremity Range of Motion Knee Range of Motion Left Knee Flexion Range of Motion - Active 103 Knee Flexion Range of Motion - Passive 110 Knee Extension Range of Motion - Active -3 Query Text: Lower Extremity Muscle Strength Testing Knee Strength Left Knee Flexion Strength 4 Good Knee Extension Strength 2+ Poor + Extremity Circumference Assessment Circumference Assessment Location Left 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[employer]) suprapatellar Circumference (cm) 41 Noninvolved Side Circumference (cm) 37 Balance Assessment Time Up Go (TUG) Timed Up and Go Test (TUG) (Seconds) 15 Assistive Devices None 5 Time Sit to Stand Time in Seconds 16.22 Gait Assessment Gait Pattern Assessment Gait Pattern Antalgic Gait Gait Pattern Observed Decreased Weight Shift - Left, Hip Hike - Left Other Gait Observations decreased left knee flexion in swing phase 2 Minute Walk Total Distance Walked (feet) 316 2 Minute Walk Gait Speed Score (feet/ 2.63 second) 2 Minute Walk Test Comments with [facility] PT Clinical Summary Michael is a 54 yo male presenting to outpatient physical therapy 4weeks s/p left TKA. Demarcus is rehabilitating well. He continues to present today with impaired gait pattern, impaired ROM, and limited
--- NOTE | 2020-05-29 10:52 | PTOPEVAL ---
PHYSICAL THERAPY DISCHARGE NOTE Thank you for referring Michael Garcia to [facility].? Please review, sign, date and return this plan of care JUANJO. I agree with and certify that the following plan of care is medically necessary. Referring Physician Date Attending Provider: Brendon Bai MD Discharge Diagnosis left TKA Onset 04/01/2020 Subjective Information Demarcus is here today 8weeks post Query Text:As Reported By Patient/ op left TKA. Doctor is Family pleased with ROM and states he can cease cane if he would like. Self Report Pain Assessment Left Knee(s) Reported Pain Level 1 Pain Description Tightness Pain Score Pain Score 1: Self Report Interventions Used Interventions Used By Clinicians Exercise,Ice Lower Extremity Range of Motion Knee Range of Motion Left Knee Flexion Range of Motion - Active 118 Knee Extension Range of Motion - Active -1 Query Text: Lower Extremity Muscle Strength Testing Knee Strength Left Knee Flexion Strength 5 Normal Knee Extension Strength 4 Good Palpation Assessment Palpation Palpation bruising has subsided; mild to moderate tenderness noted to lateral proximal gastroc head - no warmth, redness, or swelling noted and physician is aware Balance Assessment Time Up Go (TUG) Timed Up and Go Test (TUG) (Seconds) 9 Assistive Devices None 5 Time Sit to Stand Time in Seconds 11.2 Gait Assessment 2 Minute Walk Total Distance Walked (feet) 522 2 Minute Walk Gait Speed Score (feet/ 4.35 second) 2 Minute Walk Test Comments right knee is sore Stair Climbing Assessment Stair Climbing Assessment Stair Climbing Assistive Devices Railings Weight Bearing Status - Left Full Weight Bearing Status - Right Full Number of Steps Climbed (Steps) 4 Number of Repetitions (Repetitions) 4 Technique Alternating Steps Stair Climbing Direction Both Up and Down Stair Climbing Ability Independent PT Clinical Summary Michael is a 54 yo male working with outpatient physical therapy 8weeks s/p left TKA. Demarcus is rehabilitating well. He presents today with normal gait speed (mild antalgia due to right knee pain) and he demonstrates functional
== END 2020-05-30 08:19 | disposition home or self-care (01) ==
LOC: ANHPT 10:00
PROVIDERS: PCP Family Medicine; Visit Provider Orthopaedic Surgery
DX: M17.0 Bilateral primary osteoarthritis of knee (principal); Z96.652 Presence of left artificial knee joint
CPT/HCPCS: 97110; 97112; 97116; 97140; 97161

== ENCOUNTER 2020-06-19 07:56 | Outpatient (CLI) | payer OTHER, SELFPAY ==
[2020-06-19 09:24] LABS: Urine Cotinine NEGATIVE
[2020-06-19 10:48] LABS: Hemoglobin A1C 5.3 % (<5.7)
== END 2020-06-19 07:57 | disposition home or self-care (01) ==
LOC: ANHSURGERY 07:58
PROVIDERS: PCP Nurse Practitioner; Visit Provider Orthopaedic Surgery
DX: Z01.818 Encounter for other preprocedural examination (principal); M17.11 Unilateral primary osteoarthritis, right knee
CPT/HCPCS: 80307; 83036; 86850; 86900; 86901; 87081

== ENCOUNTER 2020-06-28 02:01 | Outpatient (CLI) | payer OTHER, SELFPAY ==
[2020-06-28 17:23] LABS: SARS-CoV-2 RNA PCR Negative
== END 2020-06-28 02:02 | disposition home or self-care (01) ==
LOC: ANHCOVIDDT 02:01
PROVIDERS: PCP Family Medicine; Visit Provider Orthopaedic Surgery
DX: Z01.812 Encounter for preprocedural laboratory examination (principal); Z20.822 Contact with and (suspected) exposure to COVID-19
CPT/HCPCS: C9803; U0003

== ENCOUNTER 2020-07-01 01:37 | Day surgery (SDC) | payer OTHER, SELFPAY ==
[2020-06-19 08:22] VITALS: BMI 32.8
[2020-06-19 08:42] VITALS: BP 109/68; PULSE 75; RESP 16; TEMP 37.1; O2SAT 97
[2020-07-01] VITALS (11 sets, daily range): BP systolic 85–129; BP diastolic 55–87; PULSE 64–95; RESP 12–20; TEMP 36.6–36.8; O2SAT 96–100; BMI 32.8
--- NOTE | ~2020-07-01 | XR_ITS ---
EXAMINATION: XR knee RT 2V EXAM DATE: 07/01/2020 10:09 INDICATION: TECHNIQUE: Portable frontal, crosstable lateral projections right knee obtained immediately followin g arthroplasty. Procedure performed by Brendon Bai MD. FINDINGS: Patient is status post total knee arthroplasty. The orthopedic hardware is in expected po sition. There is small amount of subcutaneous gas, gas within the knee joint space. Overlying soft tissue swelling. Correlate with procedure note. IMPRESSION: Status post total right knee arthroplasty. Reviewed, dictated and finalized at location B. INE OPERATOR PICKER
--- NOTE | 2020-07-01 06:48 | WPDANESEPPF ---
Anes - Initial Pre Proc Eval Procedure: Operation Date: 07/01/20 07:30 Proposed Procedures p Right Total Knee Arthroplasty - Brendon Bai MD Date/Time: 07/01/20 06:48 Surgeon: Brendon Bai MD Pre Op Diagnosis: right knee OA Patient Data Age: 55 Gender: M Height: 5 ft 8 in Weight: 98 kg Last Vital Signs Temp 36.8 C 07/01/20 06:21 Pulse 76 07/01/20 06:21 Resp 16 07/01/20 06:21 BP 121/73 07/01/20 06:21 Pulse Ox 97 07/01/20 06:21 Allergies Allergy/AdvReac Type Severity Reaction Status Date / Time codeine AdvReac Severe Nausea Verified 06/19/20 08:09 NSAIDS (Non-Steroidal AdvReac Unknown elevated Verified 06/19/20 08:09 Anti-Inflamma creatinine Home Medications Medication Instructions Recorded Confirmed Type atorvastatin 20 mg tablet 20 mg PO DAILY #90 tablet 12/05/19 07/01/20 Rx omeprazole magnesium 20 mg 20 mg PO DAILY 12/05/19 07/01/20 History tablet,delayed release cholecalciferol (vitamin D3) 125 mcg PO DAILY 01/25/20 07/01/20 History irbesartan 300 mg PO DAILY 04/01/20 07/01/20 History acetaminophen [Tylenol Arthritis 650 mg PO Q8H #0 tablet 04/02/20 07/01/20 Rx Pain] tramadol 50 mg tablet 50 mg PO QID PRN #120 tablet 04/26/20 07/01/20 Rx aspirin [Adult Low Dose Aspirin] 81 mg PO DAILY 06/19/20 07/01/20 History cetirizine [Zyrtec] 10 mg PO DAILY 06/19/20 07/01/20 History rivaroxaban 10 mg tablet 10 mg PO DAILY #14 tablet 06/20/20 06/20/20 Rx baclofen 10 mg tablet See Rx Instructions .ROUTE 06/24/20 Rx .COMPLEX #90 tablet Patient hx anesthesia problems: none Family hx anesthesia problems: none PMFSH Past Medical History Medical History BMI 32.0-32.9,adult Chronic kidney disease Encounter for screening for malignant neoplasm of prostate Hyperlipidemia Hypertension Lumbar disc disease Renal insufficiency Surgical History Surgical History History of cataract surgery Bilateral History of repair of rotator cuff 2011 On the right S/P total knee arthroplasty left knee 04/01/2020 Family History Family History Father Hypertension Family history of diabetes mellitus in first degree relative Mother Family history of diabetes mellitus in first degree relative Social History Social History Social History: patient stated that he has quit smoking July of this year. He has 2 children. He has been to his Michelle for over 30 years. She is the durable power bankruptcy attorney for healthcare. He desires to be a full code. 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 Smoking packs per day: 1 Smoking cigarettes per day: 20.0 Years smoked: 20 Smoking pack-years: 20.00 Smoking status: Former smoker Tobacco type: cigarettes Second hand tobacco smoke exposure: No Smoking end date: 07/22/19 Additional smoking assessment comments: DENIES ANY FORM OF TOBACCO USE Alcohol intake: never Substance use: never Substance use type: does not use Living arrangements: with family Additional living arrangements comments: & son Additional occupation/education comments: [employer] - [employer] Gender identity (if verbalized by the patient): Male Spiritual care concerns: No Anes - Eval Final PreProcedure Day of Procedure 07/01/20 06:48 Patient weight: obese Heart: regular rate and rhythm Lungs: clear to auscultation Airway: Mallampati scale class II Neurological: alert and oriented Last oral intake: >/= 8 hours ASA classification: III Emergent: no Anesthetic plan: proceed Anesthesia type and monitoring: general LMA and standard monitoring Informed Consent: The patient's anesthetic plan and its attendant risks and benefits were discussed with the patient
--- NOTE | 2020-07-01 07:09 | WPDHPUPDATE1 ---
History and Physical Update Update Date/Time: 07/01/20 07:09 History and Physical has been reviewed, including an updated exam of the patient. There are NO changes in the patient's condition. Risks, benefits, and alternatives have been discussed and questions answered. Patient agrees to proceed with procedure.
[2020-07-01] MEDS: ACETAMINOPHEN 500 MG TABLET 1000 MG PO (07:10)
[2020-07-01] MEDS: TRANEXAMIC ACID 1,000MG/ISO100 1,000 MG/100 ML BAG 200 MG IVPB (07:11)
[2020-07-01] MEDS: LACTATED RINGERS 1,000 ML 30 ML IV CONT ×3 (07:19→10:37)
[2020-07-01] MEDS: ceFAZolin 2 GM/D5W 50 ML 2 GM/50 ML BAG IVPB (07:31)
--- NOTE | 2020-07-01 07:31 | WPDANESPNB ---
Anes - Peripheral Nerve Block Date/Time: 07/01/20 07:31 I have discussed with the patient/family/POA the placement of a peripheral nerve block for post-operative pain management, including associated risks, benefits, complications, and side effects. Alternative methods of post-operative analgesia were detailed. Questions were solicited and answers provided to the satisfaction of the patient/family/POA. Time-Out: A pre-procedural Time-Out was completed immediately before starting the procedure and confirmed: Patient Identification, Site, Procedure, Patient Position and the Availability of Requisite Equipment. Clinical Indications: Acute post-operative pain management requested by the operative surgeon. Nerve Block Insertion Note Anes-nerve block: adductor canal right Patient position: supine Needle: 22 gauge, stimulating, insulated echogenic needle. Needle length: 50 mm Technique: ultrasound Injectate: bupivacaine 0.5% with epi 5 mcg/ml (25) and dexamethasone (mg) (8) Observations: tolerated well Complications: none Procedure start time:: 723 Procedure end time:: 728
[2020-07-01] MEDS: TRANEXAMIC ACID 1,000 MG/10 ML AMPUL 1000 MG TOPICAL (08:00)
[2020-07-01] MEDS: LIDO 1%/EPINEPHRINE 1:100,000 50 ML VIAL INFILTRATE (08:00)
[2020-07-01] MEDS: ceFAZolin SODIUM 1 GM VIAL IV PUSH (09:33)
--- NOTE | 2020-07-01 09:53 | PM.PROC ---
Procedure Note - Detailed Date of procedure: 07/01/20 Pre-op diagnosis: right knee OA Post-op diagnosis: same Procedure performed: Right total knee replacement Description of procedure: The patient was identified and proper site identified. In the preop holding area the anesthesia team performed a right sub sartorial block after which the patient was taken to the operating room and transferred to the OR table positioning supine taking care to pad the torso and extremities. After general anesthetic induction and intubation a nonsterile tourniquet was placed high on the right thigh. The right lower extremity was prepped and draped in the usual sterile fashion. The extremity was exsanguinated and with the knee flexed tourniquet was inflated to 300 mmHg remaining up for approximately 60 minutes. An anterior midline incision was made and a modified medial parapatellar approach was used. Infra and suprapatellar fat pads were excised. Patella was resected leaving 15 mm thickness and prepared for the 34 round three peg component. Using the intramedullary guide the distal femur was cut in the proper orientation for the size 67.5 femoral component. Using the extramedullary guide the tibia was cut perpendicular to the long axis protecting collateral ligaments and popliteal structures. It was sized to a 71. Flexion and extension gaps were balanced. Trial reduction was undertaken and the weight-bearing line was noted to passed through the center of the joint. Proximal tibia was drilled and punched in the proper orientation for the real component. Trial components were removed. The bone surfaces were washed with pulsatile lavage and dried. The real components were cemented simultaneously. The knee was held in extension and the patella held clamped until the cement had cured. Excess cement was removed from the joint. After trialing it was determined that the 13 mm insert gave full range of motion from 0-120 degrees of flexion and the patella tracked in the femoral groove with no lift-off. After final lavage the joint the real 13 E poly insert was placed and secured with a locking bar. A Betadine and saline wash was placed into the wound and allowed to sit for approximately 3 minutes and then evacuated. Periarticular tissues were infiltrated with 60 cc of the arthroplasty solution. 1 g of tranexamic acid was left in the wound. The extensor mechanism was repaired with #2 Vicryl suture and 0 looped PDS suture. Subcu was reapproximated with two 0 strata fix and tissue adhesive for the skin. A sterile dressing was applied. He tolerated the procedure well, was awakened and extubated, transferred to the bed and was taken to recovery area in stable condition. There were no known intraoperative complications. Perioperative antibiotics were administered. Anesthesia: GLMA Surgeon: Brendon Bai MD Manager Commercial Sales: Alejandro Golden Estimated blood loss (mL): 50 Tourniquet time (min): 60 Drains: No Packing: No Pathology: none sent Complications: No immediate complications Condition: stable Disposition: PACU
[2020-07-01] MEDS: fentaNYL CITRATE INJ (*CRX) 100 MCG/2 ML VIAL 25 MCG IV PUSH ×10 (10:15→10:35)
[2020-07-01] MEDS: oxyCODONE HCL (*CRX) 5 MG TAB IR PO (11:00)
--- NOTE | 2020-07-01 15:00 | SUR.PHASEII ---
1315 PT DRESSED & MEETS ANESTHESIA DISCHARGE CRITERIA. WAITING ON RIDE HOME.
== END 2020-07-01 13:55 | disposition home or self-care (01) ==
PROVIDERS: PCP Family Medicine; Visit Provider Orthopaedic Surgery
PROC: (CPT 27447; principal; 2020-07-01 07:30)
DX: M17.11 Unilateral primary osteoarthritis, right knee (principal); G89.18 Other acute postprocedural pain; I12.9 Hypertensive chronic kidney disease with stage 1 through stage 4 chronic kidney disease, or unspecified chronic kidney disease; N18.9 Chronic kidney disease, unspecified; I10 Essential (primary) hypertension; E78.5 Hyperlipidemia, unspecified; Z87.891 Personal history of nicotine dependence; E66.9 Obesity, unspecified; Z68.32 Body mass index [BMI] 32.0-32.9, adult
CPT/HCPCS: 27447; 64447; 73560; 80307; 83036; 86850; 86900; 86901; 87081; 97161; A9270; C1713; C1776; C9803; J0690; J1100; J1170; J2250; J2405; J2704; J3010; J7120; U0003

== ENCOUNTER 2020-08-21 12:30 | Outpatient (RCR) | payer OTHER, SELFPAY ==
--- NOTE | 2020-06-24 13:09 | PTOPEVAL ---
PHYSICAL THERAPY PRE-OPERATIVE NOTE Thank you for referring Michael Garcia to [facility].? Demarcus is scheduled to be seen 1 week s/p right TKA. Please review, sign, date and return this plan of care JUANJO. I agree with and certify that the following plan of care is medically necessary. Referring Physician Date Attending Provider: Brendon Bai MD Evaluation Diagnosis pre-op right TKA Subjective Information Demarcus is here today for pre- Query Text:As Reported By Patient/ operative training 1 week Family prior to right TKA. He dischared ~1month ago from PT rehabilitating from [facility]. He reports has he no new questions regarding preparation for RTKA surgery on 07/01/20. Self Report Pain Assessment Right Knee(s) Reported Pain Level 4 Pain Description Aching,Tightness Pain Frequency Chronic,Continuous Lowest Pain Intensity 0 Greatest Pain Intensity 9 Pain Score Pain Score 4: Self Report Interventions Used Interventions Used By Clinicians Exercise Pain Relief Interventions Used By Exercise,Ice,Medication Patient Other Alleviating Interventions unloading brace Lower Extremity Range of Motion Knee Range of Motion Right Knee Flexion Range of Motion - Active 119 Knee Extension Range of Motion - Active 0 Query Text: Knee Range of Motion Comments with knee brace on, potentially limiting right knee flexion Lower Extremity Muscle Strength Testing General Lower Extremity Strength Reason Not Measured WNL/Left,WNL/Right Gait Assessment Gait Assessment Ambulation Assistive Devices Walker, Wheeled Weight Bearing Status - Left Full Weight Bearing Status - Right As Tolerated Maintains Weight Bearing Status Yes Ambulation Distance 150 Query Text:(Feet) Ambulation Destination In Gym Additional Ambulation Comments reviewed gait pattern with wheeled walker and walker sizing Stair Climbing Assessment Stair Climbing Assessment Stair Climbing Assistive Devices Railings Weight Bearing Status - Left Full Weight Bearing Status - Right As Tolerated Maintains Weight Bearing Status Yes Number of Steps Climbed (Steps) 4 Number of Repetitions (Repetitions) 2 Technique Single Steps Stair Climbing Direction Both Up and Down Stair Climbing Ability Independent Ability to Step Over a Curb Independent Stair Climbing Comments reviewed stair negotiation
--- NOTE | 2020-07-08 10:32 | PTOPEVAL ---
PHYSICAL THERAPY POST SURGICAL ASSESSMENT thank you for referring Michael Garcia to [facility].? The patient is scheduled to be seen for therapy? 3x/week for 3 weeks. Please review, sign, date and return this plan of care JUANJO. I agree with and certify that the following plan of care is medically necessary. Referring Physician Date Attending Provider: Brendon Bai MD Progress Diagnosis right TKA Onset 07/01/20 Subjective Information Surgery for right TKA on Query Text:As Reported By Patient/ 2020. is present for Family evaluation this morning. States he has been doing his prescrbied exericises. States that he fell the night of surgery. He was getting ready to sit down on the toilet and his leg gave out. He did not feel as though the fall affected the knee significantly. Self Report Pain Assessment Right Knee(s) Reported Pain Level 5 Pain Description Aching,Tightness Pain Frequency Chronic,Continuous Lowest Pain Intensity 5 Greatest Pain Intensity 7 Pain Score Pain Score 5: Self Report Interventions Used Interventions Used By Clinicians Exercise Pain Relief Interventions Used By Exercise,Ice,Medication Patient Other Alleviating Interventions unloading brace Lower Extremity Range of Motion Knee Range of Motion Right Knee Flexion Range of Motion - Active 70 Knee Extension Range of Motion - Active -20 Query Text: Knee Range of Motion Comments with knee brace on, potentially limiting right knee flexion Lower Extremity Muscle Strength Testing Knee Strength Right Knee Flexion Strength 3+ Fair + Knee Extension Strength 1 Trace Palpation Assessment Palpation Palpation significant edema noted underneath patella and mild warmth noted over incision area; no significant redness noted Gait Assessment Gait Assessment Ambulation Assistive Devices Walker, Wheeled Weight Bearing Status - Left Full Weight Bearing Status - Right As Tolerated Maintains Weight Bearing Status Yes Ambulation Distance 200ft x2 Query Text:(Feet) Ambulation Destination In Gym Additional Ambulation Comments education: push off toe at end of phase and swing through to
--- NOTE | 2020-07-25 13:27 | PTOPEVAL ---
PHYSICAL THERAPY PROGRESS REPORT AND PLAN OF CARE UPDATE Thank you for referring Michael Garcia to [facility].? The patient is scheduled to be seen for therapy? 2x/week for 4 weeks. Please review, sign, date and return this plan of care JUANJO. I agree with and certify that the following plan of care is medically necessary. Referring Physician Date Attending Provider: Brendon Bai MD Progress Diagnosis right TKA Onset 07/01/20 Subjective Information Surgery for right TKA on 07/01/ Query Text:As Reported By Patient/ 2020. Progressing well. Edema Family is intermittment and activity dependent and does make the knee more stiff to flexion. Self Report Pain Assessment Right Knee(s) Reported Pain Level 3 Pain Description Aching,Tightness Knee Range of Motion Right Knee Flexion Range of Motion - Active 105 Knee Extension Range of Motion - Active -5 Query Text: Knee Range of Motion Comments with knee brace on, potentially limiting right knee flexion Lower Extremity Muscle Strength Testing Knee Strength Right Knee Flexion Strength 4+ Good + Knee Extension Strength 2+ Poor + Knee Strength Comments quad muscle contraction fair when he is looking at the leg Gait Assessment Gait Assessment Ambulation Assistive Devices Walker, Wheeled Weight Bearing Status - Left Full Weight Bearing Status - Right As Tolerated Maintains Weight Bearing Status Yes Ambulation Destination In Gym Gait Pattern Assessment Gait Pattern Antalgic Gait Other Gait Observations gait pattern is improving with greater smoothness, but continues to have stiffness with knee flexion during swing phase; requires cues for knee flexion in swing phase and to engage quad in stance phase PT Clinical Summary Michael is a 55 yo male presenting to outpatient physical therapy 3 weeks s/p right TKA. His right knee ROM is progressing well. I encouraged increasing time spent with knee straight allowing gravity to assist with extension and I also recommended watching the knee and quad during quat sets to assist to increasing power of
--- NOTE | 2020-08-23 07:44 | PTOPEVAL ---
PHYSICAL THERAPY RE-ASSESSMENT Thank you for referring Michael Garcia to [facility].? The patient has been seen 17 visits for the dx of right TKA. The patient continues to show progress but slowly due to generalized tissue tightness and patient's difficulty with relaxing/stretching. The patient is to see MD and discuss if further therapy is recommended. PT to await results from MD visit before further goals set. Plan to continue if MD deems appropriate. Please review, sign, date and return this plan of care JUANJO. I agree with and certify that the following plan of care is medically necessary. Referring Physician Date Attending Provider: Brendon Bai MD Referring Provider: Brendon Bai MD *PT Outpatient Re-Evaluation Start: 06/24/20 12:29 Freq: Status: Active Protocol: Document 08/21/20 12:48 MLV (Rec: 08/21/20 13:03 MLV [id number]) Assessment Status Re-evaluation Evaluation Information Problem Diagnosis right TKA Onset 07/01/20 Additional Evaluation Detail Patient reports continued stiffness at his knee and his calf that is relieved with stretching. Patient reports compliance with exercises and states he doesn't feel he gets a good push with extension stretching at home. Pain Assessment Timing of Pain Assessment Timing of Pain Assessment Assessment Pain Scale Pain Scale Used Numeric (1 - 10) Self Report Pain Assessment Right Knee(s) Reported Pain Level 2 Pain Frequency Acute Pain Score Pain Score 2: Self Report Interventions Used Interventions Used By Clinicians Education,Exercise,Ice,Manual Therapy Techniques Pain Relief Interventions Used By Exercise,Ice Patient Lower Extremity Range of Motion General Lower Extremity Range of Motion Limitations Pain,Soft Tissue Restriction Gross Lower Extremity Range of Motion Knee motion right: active 5- Comments 110 degrees before therapy; 2- 117 passive Lower Extremity Muscle Strength Testing General Lower Extremity Strength Gross Lower Extremity Strength improved right quad power; 4+/ 5 through motion Palpation Assessment Palpation Palpation continued soft tissue tightness right knee and patient rests in a tense state Gait Assessment Gait Pattern Assessment Gait Pattern Observed No Heel Strike - Right,Uneven Zenobia Other Gait Observations Patient ambulates safe and I with no device on lev
== END 2020-09-18 10:08 | disposition home or self-care (01) ==
LOC: ANHPT 12:30
PROVIDERS: PCP Family Medicine; Referring Provider Orthopaedic Surgery; Visit Provider Orthopaedic Surgery
DX: M17.11 Unilateral primary osteoarthritis, right knee (principal)
CPT/HCPCS: 97110; 97112; 97113; 97116; 97140; 97161

== ENCOUNTER 2021-05-07 14:11 | Outpatient (CLI) | payer OTHER, SELFPAY ==
--- NOTE | ~2021-05-07 | XR_ITS ---
XR hand LT min 3V DATE: 05/07/2021 14:34 INDICATION: Left hand pain, especially third and fourth digits TECHNIQUE: 3 views COMPARISON: 06/01/2012 left hand FINDINGS: There is a 2 x 3 mm radiopaque chronic foreign body in the soft tissues between the bases o f the first and second digits, present on 06/01/2012. There is severe osteoarthritic change at the first carpometacarpal and third metacarpophalangeal join ts and to a lesser extent second metacarpophalangeal joint. No fracture or dislocation, periosteal reaction or bone destruction. IMPRESSION: Polyarticular osteoarthritis Chronic radiopaque foreign body Reviewed, dictated and finalized at location A. TRAY OPERATOR
== END 2021-05-07 14:12 | disposition home or self-care (01) ==
LOC: ANHIMG 14:16
PROVIDERS: PCP Internal Medicine Gastroenterology; Visit Provider Internal Medicine Gastroenterology
DX: M19.042 Primary osteoarthritis, left hand (principal); S60.552D Superficial foreign body of left hand, subsequent encounter; X58.XXXD Exposure to other specified factors, subsequent encounter
CPT/HCPCS: 73130

== ENCOUNTER 2023-05-20 03:00 | Day surgery (SDC) | payer OTHER, SELFPAY ==
[2023-05-03 14:54] VITALS: BMI 29.6
--- NOTE | 2023-05-18 12:25 | SUR.PREOP ---
Patient called regarding upcoming procedure. Reviewed preop instructions, appointment times, and procedure prep.
[2023-05-20 07:05] VITALS: BP 117/81; PULSE 71; RESP 18; TEMP 36.7; O2SAT 100; BMI 28.6
[2023-05-20] MEDS: LACTATED RINGERS 1,000 ML 150 ML IV CONT (07:28)
--- NOTE | 2023-05-20 08:01 | PM.HPGS ---
History of Present Illness History of Present Illness Consent: Risks, benefits, and alternatives have been discussed and questions answered. Patient agrees to proceed with procedure. Chief complaint: neoplasm screening, GERD Narrative: Michael Garcia is a 58 year old male Presents for colonoscopy an EGD. Patient has a long history of acid reflux. Currently on omeprazole with good response to symptoms. Occasional breakthrough heartburn is well controlled with occasional Tums. Patient denies any dysphagia or bleeding. Patient presents today for EGD to exclude any precipitating factors. No family history of Sanderson's esophagus. Additionally patient presents for screening colonoscopy. Patient reports his current weight appetite and bowel movements are normal. Patient denies abdominal pain. He has had no bleeding. Family history is noncontributory. Review of Systems Review of Systems: Review of systems noncontributory. [facility] Past Medical History Medical History (Updated 12/08/22 @ 16:02 by Candi Brandon, FINISHING LAB TECHNICIAN) BMI 30.0-30.9,adult BMI 32.0-32.9,adult Chronic kidney disease Colon cancer screening Encounter for screening for malignant neoplasm of prostate Gastroesophageal reflux disease Hyperlipidemia Hypertension Lumbar disc disease Renal insufficiency Surgical History Surgical History History of cataract surgery Bilateral History of repair of rotator cuff 2011 On the right S/P total knee arthroplasty left knee 04/01/2020 right knee July 01, 2020 Family History Family History Father Hypertension Family history of diabetes mellitus in first degree relative Mother Family history of diabetes mellitus in first degree relative Social History Social History Social History: patient stated that he has quit smoking July of this year. He has 2 children. He has been to his Michelle for over 30 years. She is the durable power trust and estates attorney for healthcare. He desires to be a full code. 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 Smoking packs per day: 1 Smoking cigarettes per day: 20.0 Years smoked: 20 Smoking pack-years: 20.00 Smoking status: Former smoker Tobacco type: cigarettes Second hand tobacco smoke exposure: No Smoking end date: 07/22/19 Additional smoking assessment comments: DENIES ANY FORM OF TOBACCO USE Alcohol intake: never Alcohol use details: Moderate Substance use: never Substance use type: does not use Lack of Transportation: No Lack of Food: Never True Current Housing: I Have Housing Concerned About Future Housing: No Difficulty Paying Gas/Electric Bills: No Difficulty Paying for Meds: No Currently Unemployed: No Education: High School Diploma/GED Living arrangements: other Additional living arrangements comments: & son Occupation/Education: occupation Additional occupation/education comments: [employer] Gender identity (if verbalized by the patient): Male Sexual Orientation (if Verbalized by the Patient): Straight or Heterosexual Spiritual care concerns: No Meds Home Medications and Allergies Home Medications Medication Instructions Recorded Confirmed Type omeprazole magnesium 20 mg 20 mg PO DAILY 12/05/19 05/03/23 History tablet,delayed release (Prilosec OTC) cholecalciferol (vitamin D3) 125 125 mcg PO DAILY 01/25/20 05/03/23 History mcg (5,000 unit) tablet acetaminophen 650 mg 650 mg PO Q8H Pain #0 tabs 04/02/20 05/03/23 Rx tablet,extended release (Tylenol Arthritis Pain) tramadol 50 mg tablet 50 mg PO QID PRN pain #120 tabs 04/26/20 05/03/23 Rx aspirin 81 mg tablet 81 mg PO DAILY 06/19/20 05/03/23 History baclofen 10 mg tablet See Rx Instructio
--- NOTE | 2023-05-20 08:22 | WPDANESEPPF ---
Anes - Initial Pre Proc Eval Procedure: Operation Date: 05/20/23 08:30 Proposed Procedures p Esophagogastroduodenoscopy & Screening Colonoscopy - Marshall Andersen MD Date/Time: 05/20/23 08:22 Surgeon: Marshall Andersen MD Pre Op Diagnosis: neoplasm screening, GERD Patient Data Age: 58 Gender: M Height: 1.73 m Weight: 85.5 kg Last Vital Signs Temp 98.1 F 05/20/23 07:05 Pulse 71 05/20/23 07:05 Resp 18 05/20/23 07:05 BP 117/81 05/20/23 07:05 Pulse Ox 100 05/20/23 07:05 O2 Del Method Room Air 05/20/23 07:05 Allergies Allergy/AdvReac Type Severity Reaction Status Date / Time codeine AdvReac Severe Nausea Verified 05/03/23 14:52 NSAIDS (Non-Steroidal AdvReac Unknown elevated Verified 05/03/23 14:52 Anti-Inflamma creatinine Home Medications Medication Instructions Recorded Confirmed Type omeprazole magnesium 20 mg 20 mg PO DAILY 12/05/19 05/03/23 History tablet,delayed release (Prilosec OTC) cholecalciferol (vitamin D3) 125 125 mcg PO DAILY 01/25/20 05/03/23 History mcg (5,000 unit) tablet acetaminophen 650 mg 650 mg PO Q8H Pain #0 tabs 04/02/20 05/03/23 Rx tablet,extended release (Tylenol Arthritis Pain) tramadol 50 mg tablet 50 mg PO QID PRN pain #120 tabs 04/26/20 05/03/23 Rx aspirin 81 mg tablet 81 mg PO DAILY 06/19/20 05/03/23 History baclofen 10 mg tablet See Rx Instructions .Route 02/25/21 05/03/23 Rx .COMPLEX #90 tabs amlodipine 5 mg tablet 5 mg PO DAILY 07/14/22 05/03/23 History atorvastatin 20 mg tablet See Rx Instructions .Route 12/04/22 05/03/23 Rx .COMPLEX #90 tabs Patient hx anesthesia problems: none Family hx anesthesia problems: none Results Review: All pre-operative results and documents have been reviewed as part of the pre-operative evaluation. [facility] Past Medical History Medical History (Updated 12/08/22 @ 16:02 by Candi Brandon, JESÚS) BMI 30.0-30.9,adult BMI 32.0-32.9,adult Chronic kidney disease Colon cancer screening Encounter for screening for malignant neoplasm of prostate Gastroesophageal reflux disease Hyperlipidemia Hypertension Lumbar disc disease Renal insufficiency Surgical History Surgical History History of cataract surgery Bilateral History of repair of rotator cuff 2010 On the right S/P total knee arthroplasty left knee 04/01/2020 right knee July 01, 2020 Family History Family History Father Hypertension Family history of diabetes mellitus in first degree relative Mother Family history of diabetes mellitus in first degree relative Social History Social History Social History: patient stated that he has quit smoking July of this year. He has 2 children. He has been to his Michelle for over 30 years. She is the durable power corporate associate attorney for healthcare. He desires to be a full code. 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 Smoking packs per day: 1 Smoking cigarettes per day: 20.0 Years smoked: 20 Smoking pack-years: 20.00 Smoking status: Former smoker Tobacco type: cigarettes Second hand tobacco smoke exposure: No Smoking end date: 07/22/19 Additional smoking assessment comments: DENIES ANY FORM OF TOBACCO USE Alcohol intake: never Alcohol use details: Moderate Substance use: never Substance use type: does not use Lack of Transportation: No Lack of Food: Never True Current Housing: I Have Housing Concerned About Future Housing: No Difficulty Paying Gas/Electric Bills: No Difficulty Paying for Meds: No Currently Unemployed: No Education: High School Diploma/GED Living arrangements: other Additional living arrangements comments: & son Occupation/Education: occupation Additional occupation/education comment
--- NOTE | 2023-05-20 08:45 | SUR.OPER ---
egd ended at 837 and colonoscopy started at 843.
[2023-05-20 09:06] VITALS: BP 135/106; PULSE 71; RESP 18; O2SAT 99
[2023-05-20 09:16] VITALS: BP 98/68; PULSE 70; RESP 18; O2SAT 99
[2023-05-20 09:26] VITALS: BP 107/71; PULSE 76; RESP 18; O2SAT 99
== END 2023-05-20 09:42 | disposition home or self-care (01) ==
PROVIDERS: PCP Physician Assistant; Visit Provider Internal Medicine Gastroenterology
PROC: 0DJ08ZZ Inspection of Upper Intestinal Tract, Via Natural or Artificial Opening Endoscopic (ICD-10-PCS; CPT 43235; principal; 2023-05-20 08:30)
DX: Z12.11 Encounter for screening for malignant neoplasm of colon (principal); D12.3 Benign neoplasm of transverse colon; D12.2 Benign neoplasm of ascending colon; D12.5 Benign neoplasm of sigmoid colon; D12.8 Benign neoplasm of rectum; K64.8 Other hemorrhoids; K57.31 Diverticulosis of large intestine without perforation or abscess with bleeding; K21.9 Gastro-esophageal reflux disease without esophagitis; N18.9 Chronic kidney disease, unspecified; E78.5 Hyperlipidemia, unspecified; I12.9 Hypertensive chronic kidney disease with stage 1 through stage 4 chronic kidney disease, or unspecified chronic kidney disease; Z87.891 Personal history of nicotine dependence
CPT/HCPCS: 43235; 45385; 88305; J2704; J7120

== ENCOUNTER 2023-12-21 09:52 | Outpatient (CLI) | payer OTHER, SELFPAY ==
--- NOTE | ~2023-12-21 | XR_ITS ---
EXAMINATION: XR lumbar spine 2-3V DATE: 12/21/2023 10:06 INDICATION: Chronic low back pain TECHNIQUE: Anteroposterior and lateral views of the lumbar spine, and cone-down lateral view of the l umbosacral junction were obtained. COMPARISON: None. FINDINGS: 15 degree lumbar levoscoliosis. 3 mm right lateral listhesis L2 on L3. Sagittal alignment is normal. Vertebral body heights are normal. Severe disc height loss at L4-L5. Mild left-sided and moderate to severe right-sided disc height loss at L3-L4. Mild to moderate disc height loss at L1-L2, L2-L3 and m ild disc height loss at L5-S1. Moderate to severe lower lumbar facet osteoarthritis. Mild bilateral h ip and sacroiliac osteoarthritis. IMPRESSION: 1. 15 degrees lumbar levoscoliosis with severe spondylosis. Reviewed, dictated and finalized at location B.
== END 2023-12-21 09:53 ==
LOC: MICIMG 09:52
PROVIDERS: PCP Physician Assistant; Visit Provider Physician Assistant
DX: G89.29 Other chronic pain (principal)
CPT/HCPCS: 72100

== ENCOUNTER 2024-07-21 21:11 | Emergency (ER) | payer OTHER, SELFPAY ==
--- NOTE | ~2024-07-21 | CT_ITS ---
EXAMINATION: CTA brain carotid DATE: 07/22/2024 02:04 INDICATION: Dizziness. Right leg numbness. TECHNIQUE: Computed tomographic angiography (CTA) of the head was performed without and with 100 mL O mnipaque-350 intravenous contrast. CTA of the neck was performed with intravenous contrast. Automated exposure control and iterative reconstruction technique were employed. The dose-length product was 1 872.73 mGy-cm. Maximum intensity projection and volume rendered 3D-reconstructions were created by mariano pinto technologist on a separate workstation. COMPARISON: None. FINDINGS: HEAD CTA: There is an acute infarct in the left temporal occipital region. There is no intracranial h emorrhage or abnormal mass lesion. The ventricles are normal in size. There is mild mucosal thickenin g in the paranasal sinuses. There are likely changes of ocular lens replacement surgeries. The mastoi d air cells are normal. Left vertebral artery is dominant. There is no significant stenosis of right posterior cerebral artery. There is thrombus in left P2 posterior cerebral artery with severe stenosi s. There is no significant stenosis of the intracranial internal carotid arteries or anterior or midd le cerebral arteries. Anterior communicating artery is normal. The posterior communicating arteries a re normal. NECK CTA: There is mild emphysema. There is mild scarring at the lung apices. There is no significant stenosis of the vertebral arteries. There is plaque in the proximal internal carotid arteries. There is 0% stenosis of the proximal right internal carotid artery relative to normal distal artery lumen diameter (NASCET criteria). There is 0% stenosis of the proximal left internal carotid artery relativ e to normal distal artery lumen diameter. There is severe cervical spondylosis. IMPRESSION: 1. Acute infarct in the left temporal occipital region in the expected distribution of left posterior cerebral artery. 2. 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 3. 0% stenosis of the proximal internal carotid arteries relative to normal distal artery lumen diame ters (NASCET criteria). Reviewed, dictated and finalized at location A. DRILLER HELPER IMPRESSION: 1. Acute infarct in the left temporal occipital region in the expected distribu tion of left posterior cerebral artery. 2. 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 3. 0% stenosis of the proximal internal carotid arteries relative to normal dis blanca artery lumen diameters (NASCET criteria).
--- NOTE | ~2024-07-21 | XR_ITS ---
EXAMINATION: XR chest 1V DATE: 07/22/2024 02:05 INDICATION: Dizziness. TECHNIQUE: A single frontal view of the chest was obtained. COMPARISON: None. FINDINGS: There is no pneumonia, pleural effusion, or pneumothorax. The heart size is normal. IMPRESSION: 1. No acute cardiopulmonary disease. Reviewed, dictated and finalized at location A. DRILLER
[2024-07-21 21:12] VITALS: BP 173/78; PULSE 90; RESP 14; TEMP 36.4; O2SAT 100
--- OUTSIDE RECORDS SUMMARY | 2024-07-21 21:13 | XMS_ITS | Clinical Summary ---
Author Organization [facility] Address [address] [place] [phone] Phone Care Team Providers Care Relief Mate Name Role Phone Summer Sandhu Primary Care Provider [phone] Allergies No known active allergies Medications Medication Sig Dispensed Refills Start Date End Date Status irbesartan (AVAPRO) 300 MG tablet Take 300 mg by mouth 1 (one) time each day 09/13/2019 Active traMADol (ULTRAM) 50 MG tablet TAKE 1 TABLET BY MOUTH 4 TIMES A DAY NEEDED FOR PAIN 10/06/2019 Active baclofen (LIORESAL) 10 MG tablet TAKE 1 TABLET BY MOUTH 3 TIMES A DAY NEEDED FOR MUSCLE SPASM 10/02/2019 Active aspirin 81 MG chewable tablet Chew 81 mg 1 (one) time each day Active atorvastatin (LIPITOR) 40 MG tablet TAKE 1 TABLET BY MOUTH EVERY DAY 90 tablet 1 06/07/2022 Active Active Problems Problem Noted Date Diagnosed Date Essential hypertension 10/25/2019 Other and unspecified hyperlipidemia 10/25/2019 Stage 3a chronic kidney disease 10/25/2019 Immunizations Name Administration Dates Next Due Influenza TIV (IM) 03/24/2021 Family History Medical History Relation Comments Kidney disease Neg Hx Social History Tobacco Use Types Packs/Day Years Used Date Smoking Tobacco: Former Smokeless Tobacco: Never Alcohol Use Standard Drinks/Week Comments Yes 0 (1 standard drink = 0.6 oz pur e alcohol) rare Sex and Gender Information Value Date Recorded Sex Assigned at Male 06/08/2022 3:43 PM [facility] [[email or web address]] Gender Identity Male 06/08/2022 3:43 PM [facility] [[email or web address]] Sexual Orientation Straight 06/08/2022 3: 43 PM [facility] [[email or web address]] Last Filed Vital Signs Vital Sign Reading Time Taken Comments Blood Pressure 138/80 01/19/2022 2:46 PM CDT Pulse 84 01/19/2022 2:46 PM CDT Temperature 37.3 ??C (99.1 ??F) 01/19/2022 2:46 PM CD T Respiratory Rate - - Oxygen Saturation - - Inhaled Oxygen Concentration - - Weight 92.1 kg (203 lb) 01/19/2022 2:46 PM CDT Height 172.7 cm (5' 8 ) 01/19/2022 2:46 PM CDT Body Mass Index 30.87 01/19/2022 2:46 PM CDT Plan of Treatment Health Maintenance Due Date Last Done Comments Pneumococcal PPSV23 Highest Risk Adult (1 of 3 - PCV13) 1982 Influenza Vaccine (#1) 2024 03/24/2021 Care Teams Relief Mate Relationship Specialty Start Date End Date Summer Sandhu PA [address] [id number] PCP - General Family Medicine 01/19/22
--- NOTE | 2024-07-21 21:16 | ECG_ITS ---
Test Date: 2024-07-21 21:21:58 Measurements Intervals [place] Rate: 79 P: 72 [place]: 150 QRS: 75 QRSD: 102 T: 71 QT: 377 QTc: 432 Interpretive Statements SINUS RHYTHM POSSIBLE ANTERIOR MYOCARDIAL INFARCTION , OF INDETERMINATE AGE MINIMAL Q WAVES- INFERIOR LEADS ABNORMAL ECG No previous ECG available for comparison Electronically Signed On 07-22-2024 09:58:54 [facility] by Rafita Haney D.O.
[2024-07-21 21:22] LABS: Glucose Point of Care 99 mg/dl (65-105)
[2024-07-21 21:26] LABS: Basophils Absolute Auto 0.1 K/mm3 (0.0-0.1); Basophils Percent Auto 0.8 % (0.2-1.2); Eosinophils Absolute Auto 0.2 K/mm3 (0-0.3); Hematocrit 43.5 % (42.0-52.0); Hemoglobin 14.7 g/dL (14.0-18.0); Immature Granulocyte Absolute 0.03 K/mm3 (0.00-0.031); Immature Granulocyte Percent A 0.3 % (0-0.5); Lymphocytes Absolute Auto 3.12 K/mm3 (0.9-3.2); Lymphocytes Percent Auto 33.5 % (18.3-44.2); Mean Corpuscular HGB Conc 33.8 g/dl (32-36); Mean Corpuscular Hemoglobin 32.9 pg (26-34); Mean Corpuscular Volume 97.3 fl (80-100); Mean Platelet Volume 10.1 fl (7.4-10.4); Monocytes Absolute Auto 0.5 K/mm3 (0.1-0.6); Monocytes Percent Auto 5.2 % (2.6-8.5); Neutrophils Absolute Auto 5.4 K/mm3 (1.3-6.7); Neutrophils Percent Auto 58.2 % (45.5-73.1); Platelet Count Result 226 k/mm3 (150-375); Red Blood Count 4.47 M/mm3 (4.6-6.20); Red Cell Distribution Width 12.8 % (11.5-14.5); White Blood Count 9.3 K/mm3 (4.5-10.0)
[2024-07-21 21:40] LABS: Alanine Aminotransferase 22 U/L (6-50); Albumin Level 4.5 g/dL (3.5-5.1); Alkaline Phosphatase 84 U/L (38-126); Anion Gap 12 mmol/L (4-12); Aspartate Amino Transferase 22 U/L (17-59); Bilirubin,Total 0.4 mg/dL (0.2-1.3); Blood Urea Nitrogen 22 mg/dL (9-20); Calcium 9.7 mg/dL (8.4-10.2); Carbon Dioxide 21 mmol/L (22-30); Chloride 106 mmol/L (98-107); Estimated CRCL calculation 57 ml/min; Estimated Glomerular Filt Rate > 60; Glucose 104 mg/dL (65-110); Potassium 4.1 mmol/L (3.4-5.0); Sodium 139 mmol/L (137-145)
[2024-07-21 21:44] LABS: Partial Thromboplastin Time 27.8 Seconds (22.3-36.8); Prothrombin Time 13.2 Seconds (11.1-14.7)
[2024-07-21 22:03] LABS: Influenza A QL RT-PCR Negative (Negative); Influenza B QL RT-PCR Negative (Negative); RSV RNA, RT-PCR Negative (Negative); SARS-CoV-2 RNA PCR Negative (Negative)
[2024-07-22] VITALS (34 sets, daily range): BP systolic 123–150; BP diastolic 79–94; PULSE 58–105; RESP 10–20; TEMP 36.8; O2SAT 96–100
--- OUTSIDE RECORDS SUMMARY | 2024-07-22 01:05 | XMS_ITS | Continuity of Care Document ---
Author Organization [facility] Address [address] [place] [address] Phone Care Team Providers Care Video Game Programmer Name Role Phone Terry James Unavailable Unavailable Procedures Procedure Date Post-op Follow-up Visit Post-op Follow-up Visit Remove Cataract, Insert Lens Eye Exam & Treatment IOLMaster-Professional Advance Directives Directive Yes / No Effective Date File Name No Information Encounters Encounter Description Practice Location Reason(s) For Visit Diagnoses Date Provider Providers Copied on Encounter [facility], [address] [place] [address] [address], [place], [place], [id number], tel:[phone] [facility] No Information Aug-2 5-201 0 Doitatyana Edambrocio. [address] , [address], [place], [place], [facility], . tel:[phone] [facility], [address] [place] [address] [address], [place], [place], [id number], [place] tel:[phone] [facility] No Information Aug-1 7-201 0 Doitatyana Edambrocio. [address], [place], [place], [facility], . tel:[phone] [facility], [address] [place] [address] [address], [place], [place], [id number], tel:[phone] [facility] No Information Mar-1 6-201 0 Doitatyana Edambrocio. [address] , [address], [place], [address], [place]. tel:[phone] Referring Provider: [facility], [address], [place], [address]. tel:[phone] [facility], [address] [facility] [address], [place], [place], [id number], [place] tel:[phone] [facility] No Information -201 0 Doisy Terry. [address] , [address], [place], [address], [place]. tel:[phone] Referring Provider: [facility], [address], [place], [address]. tel:[phone] Family History Family Member Type Diagnosis Age At Onset No Information Payers Payer name Insurance type Covered democrat ID Authoriza tion(s) No Information Social History Type Description Quantity Date Captured Comments Sex Male Smoking Status No Information Chief Complaint And Reason For Visit No Information Reason For Referral Reason For Referral No Information History Of Present Illness Encounter Date Complaint History Of Prese nt Illness No Information Functional Status Date Functional Assessmen t No Information Instructions Date Instruction Additional Infor mation No Information Assessments Type Assessment Date No Information Patient Care Teams Name Effective Dates (start - stop) Status Members No Information
--- OUTSIDE RECORDS SUMMARY | 2024-07-22 01:05 | XMS_ITS | Clinical Summary ---
Author Organization [facility] Address [address] [place] [address] Phone Care Team Providers Care Siding Coreboard Inspector Name Role Phone Summer Sandhu Primary Care Provider Allergies No known active allergies Medications Medication [...] Sex Assigned at Male 06/08/2022 3:43 PM [facility] Gender Identity Male 06/08/2022 3:43 PM [facility] Sexual Orientation Straight 06/08/2022 3: 43 PM [facility] Last Filed Vital Signs Vital Sign Reading [...] Influenza Vaccine (#1) 2024 03/24/2021 Care Teams Siding Coreboard Inspector Relationship Specialty Start Date End Date Summer Sandhu PA [address] [id number] PCP - General Family Medicine 01/19/22
--- NOTE | 2024-07-22 01:37 | ED_ITS ---
HPI - General Adult General Chief complaint: Dizziness <RASHAUN Orozco Last Filed: 07/22/24 04:09> Stated complaint: feeling out of sorts <Maki Singleton PA-C - Last Filed: 07/22/24 04:09> Time Seen by Provider: 07/22/24 00:49 <Maki Singleton PA-C - Last Filed: 07/22/24 04:09> History of Present Illness HPI narrative: 59-year-old male with history of CKD stage 3, hyperlipidemia, hypertension, optic neuritis in the left eye presents to emergency department with at bedside for vision changes, decreased sensation to right leg and unsteady gait since 1300 today. Patient states he has been having difficulty focusing out of his left eye which is new. States he has chronic issues with this peripheral vision due to diagnosis of optic neuritis 11 years ago at [facility]. He is describing hemianopsia to the left eye that is chronic but seems to be worse today. He has not followed with a neurologist in several years. Today he states he was having difficulty placing a glass of water on the table due to blurred vision and ataxia. States he when he ambulates he walks like he is drunk and unsteady on his feet. He also states he has decreased sensation in his right leg. Denies double vision, loss of vision, chest pain or shortness of breath, history of CVA or TIA. <Maki Singleton PA-C - Last Filed: 07/22/24 04:09> Related Data Home medications: Home Medications ?Medication ?Instructions ?Recorded ?Confirmed ?Last Taken ?Type omeprazole magnesium 20 mg 20 mg PO DAILY 12/05/19 05/03/23 03/31/20 09:00 History tablet,delayed release (Prilosec OTC) cholecalciferol (vitamin D3) 125 125 mcg PO DAILY 01/25/20 05/03/23 06/27/20 History mcg (5,000 unit) tablet aspirin 81 mg tablet 81 mg PO DAILY 06/19/20 05/03/23 06/26/20 History amlodipine 5 mg tablet 5 mg PO DAILY 07/14/22 05/03/23 Unknown History <RASHAUN Orozco Last Filed: 07/22/24 04:09> Allergies/adverse reactions: Allergies Allergy/AdvReac Type Severity Reaction Status Date / Time codeine AdvReac Severe Nausea Verified 07/22/24 00:28 NSAIDS (Non-Steroidal AdvReac Unknown elevated Verified 07/22/24 00:28 Anti-Inflamma creatinine <Maki Singleton PA-C - Last Filed: 07/22/24 04:09> Review of Systems 2 Review of Systems: All systems reviewed & are unremarkable except as noted in HPI and below <Maki Singleton PA-C - Last Filed: 07/22/24 04:09> PMFSH Past Medical History Medical History: Medical History BMI 30.0-30.9,adult Gastroesophageal reflux disease Colon cancer screening BMI 32.0-32.9,adult Chronic kidney disease Renal insufficiency Hypertension Hyperlipidemia Encounter for screening for malignant neoplasm of prostate Lumbar disc disease <Maki Singleton PA-C - Last Filed: 07/22/24 04:09> Surgical History Surgical History: Surgical History S/P total knee arthroplasty left knee 04/01/2020 right knee July 01, 2020 History of repair of rotator cuff 2011 On the right History of cataract surgery Bilateral <Maki Singleton PA-C - Last Filed: 07/22/24 04:09> Family History Family History: Family History Father Hypertension Family history of diabetes mellitus in first degree relative Mother Family history of diabetes mellitus in first degree relative <Maki Singleton PA-C - Last Filed: 07/22/24 04:09> Social History Social History: Social History Social History: patient stated that he has quit smoking July of this year. He has 2 children. He has been to his Michelle for over 30 years. She is the durable power silk screen operator for healthcare. He desires to be a full code. 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 Smoking packs per day: 1 Smoking cigarettes per day: 20.0 Years smoked: 20 Smoking pack-years: 20.00 Smoking status: Former smoker Tobacco type: cigarettes Second hand tobacco smoke exposure: No Smoking end date: 07/22/19 Additional smoking assessment comments: DENIES ANY FORM OF TOBACCO USE Alcohol intake: never Alcohol use details: Moderate Substance use: never Substance use type: does not use Lack of Transportation: No Lack of Food: Never True Current Housing: I Have Housing Concerned About Future Housing: No Difficulty Paying Gas/Electric Bills: No Difficulty Paying for Meds: No Currently Unemployed: No Education: High School Diploma/GED Living arrangements: other Additional living arrangements comments: & son Occupation/Education: occupation 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 HEAD: Normocephalic, atraumatic. EYES: PERRLA and EOMI. ENT: Nares clear, no rhinorrhea or epistaxis. Mucous membranes moist. Bilateral TMs are ruano nonbulging with normal canals NECK: Supple. CHEST: Clear to auscultation. No respiratory distress. HEART: Regular rate and rhythm. No murmur heard. Normal peripheral pulses. ABDOMEN: Soft, nontender, nondistended, normal active bowel sounds. EXTREMITIES: Normal range of motion. No edema. SKIN: Warm, dry, no rash. NEURO: No focal deficits. Alert and oriented x3. Left sided partial hemianopia, otherwise CN II-XII intact. Strength 5/5 BUE and BLE. Sensation intact throughout. Normal [id number]. No pronator drift. <Maki Singleton PA-C - Last Filed: 07/22/24 04:09> Course LEATHER WORKER/PA Physician Supervision This visit was performed by both a physician and an APC. I performed all aspects of the MDM as documented. <Darwin Luevano MD - Last Filed: 07/22/24 06:48> Vital Signs Vital signs: Vital Signs Temperature 97.6 F 07/21/24 21:12 Pulse Rate 90 07/21/24 21:12 Respiratory Rate 14 07/21/24 21:12 Blood Pressure 173/78 H 07/21/24 21:12 Pulse Oximetry 100 07/21/24 21:12 Oxygen Delivery Room Air 07/21/24 21:12 Temperature 98.2 F 07/22/24 06:41 Pulse Rate 74 07/22/24 06:41 Respiratory Rate 20 07/22/24 06:41 Blood Pressure 135/86 07/22/24 06:41 Pulse Oximetry 99 07/22/24 06:41 Oxygen Delivery Room Air 07/21/24 21:12 <Maki Singleton PA-C - Last Filed: 07/22/24 04:09> Vital Signs Temperature 97.6 F 07/21/24 21:12 Pulse Rate 90 07/21/24 21:12 Respiratory Rate 14 07/21/24 21:12 Blood Pressure 173/78 H 07/21/24 21:12 Pulse Oximetry 100 07/21/24 21:12 Oxygen Delivery Room Air 07/21/24 21:12 Temperature 98.2 F 07/22/24 06:41 Pulse Rate 74 07/22/24 06:41 Respiratory Rate 20 07/22/24 06:41 Blood Pressure 135/86 07/22/24 06:41 Pulse Oximetry 99 07/22/24 06:41 Oxygen Delivery Room Air 07/21/24 21:12 <Darwin Luevano MD - Last Filed: 07/22/24 06:48> Medical Decision Making [facility] Narrative Medical decision making narrative: 59-year-old male with history of hypertension, hyperlipidemia, left eye optic neuritis 11 years ago presents to the emergency department for difficulty focusing with his left eye, right leg decreased sensation and reported ataxia since 1300 today. Vitals with elevated blood pressure, otherwise unremarkable. Patient is afebrile and nontoxic appearing resting comfortably in exam bed. No focal deficits appreciated exam. NIH stroke scale is 1 (1+ for partial hemianopia) Lab work shows no leukocytosis or anemia. Chemistries are largely unremarkable. Viral swabs are negative. EKG shows sinus rhythm with rate of 79 ppm, normal TX interval, normal QRS duration, normal QTC, Q-waves in leads V2 and V3, no ST elevations or depressions. Troponin undetectable. 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 Pt and updated on workup. Will consult tertiary facility stroke team. Unfortunately we do not have neurology this week and so he will need to be transferred. Discussed with [facility] stroke team, Dr. Pena, who advises continuation of baby aspirin, initiate plavix for 21 days, atorvastatin 80mg. Unfortunately patient is not a candidate for thrombectomy given low NIHSS. Pt placed on [facility] waitlist. Discussed with [facility] Neurologist, Dr. Sosa who has accepted the patient and agrees with the above plan. Advised ED to ED transfer. Discussed with ED physician, Dr. Short who agrees to transfer. Bed cancelled at [facility]. Pt transferred to [facility] in stable condition. He was given first dose of aspirin, plavix, and atorvastatin 80mg prior to departure. <Maki Singleton PA-C - Last Filed: 07/22/24 04:09> Vital Signs Vital Signs: Vital Signs Temperature 97.6 F 07/21/24 21:12 Pulse Rate 90 07/21/24 21:12 Respiratory Rate 14 07/21/24 21:12 Blood Pressure 173/78 H 07/21/24 21:12 Pulse Oximetry 100 07/21/24 21:12 Oxygen Delivery Room Air 07/21/24 21:12 Temperature 98.2 F 07/22/24 06:41 Pulse Rate 74 07/22/24 06:41 Respiratory Rate 20 07/22/24 06:41 Blood Pressure 135/86 07/22/24 06:41 Pulse Oximetry 99 07/22/24 06:41 Oxygen Delivery Room Air 07/21/24 21:12 <Maki Singleton PA-C - Last Filed: 07/22/24 04:09> Vital Signs Temperature 97.6 F 07/21/24 21:12 Pulse Rate 90 07/21/24 21:12 Respiratory Rate 14 07/21/24 21:12 Blood Pressure 173/78 H 07/21/24 21:12 Pulse Oximetry 100 07/21/24 21:12 Oxygen Delivery Room Air 07/21/24 21:12 Temperature 98.2 F 07/22/24 06:41 Pulse Rate 74 07/22/24 06:41 Respiratory Rate 20 07/22/24 06:41 Blood Pressure 135/86 07/22/24 06:41 Pulse Oximetry 99 07/22/24 06:41 Oxygen Delivery Room Air 07/21/24 21:12 <Darwin Luevano MD - Last Filed: 07/22/24 06:48> Lab Data Result diagrams: 07/21/24 21:20 07/21/24 21:20 <Maki Singleton PA-C - Last Filed: 07/22/24 04:09> Labs: Lab Results 07/21/24 07/21/24 07/22/24 Range/Units 21:18 21:20 01:43 WBC 9.3 (4.5-10.0) K/mm3 RBC 4.47 L (4.6-6.20) M/mm3 Hgb 14.7 D (14.0-18.0) g/dL Hct 43.5 (42.0-52.0) % MCV 97.3 (80-100) fl MCH 32.9 (26-34) pg MCHC 33.8 (32-36) g/dl RDW 12.8 (11.5-14.5) % Plt Count 226 (150-375) k/mm3 MPV 10.1 (7.4-10.4) fl Immature Gran % (Auto) 0.3 (0-0.5) % Neut % (Auto) 58.2 (45.5-73.1) % Lymph % (Auto) 33.5 (18.3-44.2) % [place] % (Auto) 5.2 (2.6-8.5) % Eos % (Auto) 2.0 (0-4.4) % Baso % (Auto) 0.8 (0.2-1.2) % Lymph # (Auto) 3.12 (0.9-3.2) K/mm3 [place] # (Auto) 0.5 (0.1-0.6) K/mm3 Eos # (Auto) 0.2 (0-0.3) K/mm3 Baso # (Auto) 0.1 (0.0-0.1) K/mm3 Abs Immat Gran (auto) 0.03 (0.00-0.031) K/mm3 Absolute Neuts (auto) 5.4 (1.3-6.7) K/mm3 Absolute Nucleated RBC 0.000 (0.0-0.012) K/mm3 Nucleated RBC % 0.0 (0.0-0.2) % PT 13.2 (11.1-14.7) Seconds INR 1.0 APTT 27.8 (22.3-36.8) Seconds Sodium 139 (137-145) mmol/L Potassium 4.1 (3.4-5.0) mmol/L Chloride 106 (98-107) mmol/L Carbon Dioxide 21 L (22-30) mmol/L Anion Gap 12 (4-12) mmol/L BUN 22 H (9-20) mg/dL Creatinine 1.17 (0.7-1.3) mg/dL Estim Creat Clear Calc 57 ml/min Estimated GFR > 60 (59 - ) Glucose 104 (65-110) mg/dL POC Capillary Glucose 99 (65-105) mg/dl Calcium 9.7 (8.4-10.2) mg/dL Total Bilirubin 0.4 (0.2-1.3) mg/dL AST 22 (17-59) U/L ALT 22 (6-50) U/L Alkaline Phosphatase 84 (38-126) U/L Troponin I < 0.012 (0.000-0.034) ng/mL Total Protein 8.0 (6.3-8.2) g/dL Albumin 4.5 (3.5-5.1) g/dL Urine Color (Yellow) Urine Appearance (Clear) Urine pH (5.0-9.0) Ur Specific [place] (1.001-1.035) Urine Protein (Negative) mg/dL Urine Glucose (UA) (Negative) mg/dL Urine Ketones (Negative) mg/dL Ur Blood (Man) (Negative) Urine Nitrate (Negative) Urine Bilirubin (Negative) Urine Urobilinogen (<2.0) mg/dL Leukocyte Esterase Rfl (Negative) PABLO/UL Urine RBC (0-2) /hpf Urine WBC (0-3) /hpf Ur Squamous Epith Cells (Few) /hpf Urine Bacteria /hpf Urine Casts Influenza A (RT-PCR) Negative (Negative) Influenza B (RT-PCR) Negative (Negative) RSV (RT-PCR) Negative (Negative) SARS-CoV-2 RNA (RT-PCR) Negative (Negative) 07/22/24 Range/Units 02:57 WBC (4.5-10.0) K/mm3 RBC (4.6-6.20) M/mm3 Hgb (14.0-18.0) g/dL Hct (42.0-52.0) % MCV (80-100) fl MCH (26-34) pg MCHC (32-36) g/dl RDW (11.5-14.5) % Plt Count (150-375) k/mm3 MPV (7.4-10.4) fl Immature Gran % (Auto) (0-0.5) % Neut % (Auto) (45.5-73.1) % Lymph % (Auto) (18.3-44.2) % [place] % (Auto) (2.6-8.5) % Eos % (Auto) (0-4.4) % Baso % (Auto) (0.2-1.2) % Lymph # (Auto) (0.9-3.2) K/mm3 [place] # (Auto) (0.1-0.6) K/mm3 Eos # (Auto) (0-0.3) K/mm3 Baso # (Auto) (0.0-0.1) K/mm3 Abs Immat Gran (auto) (0.00-0.031) K/mm3 Absolute Neuts (auto) (1.3-6.7) K/mm3 Absolute Nucleated RBC (0.0-0.012) K/mm3 Nucleated RBC % (0.0-0.2) % PT (11.1-14.7) Seconds INR APTT (22.3-36.8) Seconds Sodium (137-145) mmol/L Potassium (3.4-5.0) mmol/L Chloride (98-107) mmol/L Carbon Dioxide (22-30) mmol/L Anion Gap (4-12) mmol/L BUN (9-20) mg/dL Creatinine (0.7-1.3) mg/dL Estim Creat Clear Calc ml/min Estimated GFR (59 - ) Glucose (65-110) mg/dL POC Capillary Glucose (65-105) mg/dl Calcium (8.4-10.2) mg/dL Total Bilirubin (0.2-1.3) mg/dL AST (17-59) U/L ALT (6-50) U/L Alkaline Phosphatase (38-126) U/L Troponin I (0.000-0.034) ng/mL Total Protein (6.3-8.2) g/dL Albumin (3.5-5.1) g/dL Urine Color Yellow (Yellow) Urine Appearance Clear (Clear) Urine pH 5.5 (5.0-9.0) Ur Specific [place] > 1.045 H (1.001-1.035) Urine Protein Trace (Negative) mg/dL Urine Glucose (UA) Negative (Negative) mg/dL Urine Ketones Negative (Negative) mg/dL Ur Blood (Man) Negative (Negative) Urine Nitrate Negative (Negative) Urine Bilirubin Negative (Negative) Urine Urobilinogen 0.2 (<2.0) mg/dL Leukocyte Esterase Rfl Negative (Negative) PABLO/UL Urine RBC 0-2 (0-2) /hpf Urine WBC 0-5 (0-3) /hpf Ur Squamous Epith Cells None seen (Few) /hpf Urine Bacteria None seen /hpf Urine Casts 0-2 Influenza A (RT-PCR) (Negative) Influenza B (RT-PCR) (Negative) RSV (RT-PCR) (Negative) SARS-CoV-2 RNA (RT-PCR) (Negative) <Maki Singleton PA-C - Last Filed: 07/22/24 04:09> Lab Results 07/21/24 07/21/24 07/22/24 Range/Units 21:18 21:20 01:43 WBC 9.3 (4.5-10.0) K/mm3 RBC 4.47 L (4.6-6.20) M/mm3 Hgb 14.7 D (14.0-18.0) g/dL Hct 43.5 (42.0-52.0) % MCV 97.3 (80-100) fl MCH 32.9 (26-34) pg MCHC 33.8 (32-36) g/dl RDW 12.8 (11.5-14.5) % Plt Count 226 (150-375) k/mm3 MPV 10.1 (7.4-10.4) fl Immature Gran % (Auto) 0.3 (0-0.5) % Neut % (Auto) 58.2 (45.5-73.1) % Lymph % (Auto) 33.5 (18.3-44.2) % [place] % (Auto) 5.2 (2.6-8.5) % Eos % (Auto) 2.0 (0-4.4) % Baso % (Auto) 0.8 (0.2-1.2) % Lymph # (Auto) 3.12 (0.9-3.2) K/mm3 [place] # (Auto) 0.5 (0.1-0.6) K/mm3 Eos # (Auto) 0.2 (0-0.3) K/mm3 Baso # (Auto) 0.1 (0.0-0.1) K/mm3 Abs Immat Gran (auto) 0.03 (0.00-0.031) K/mm3 Absolute Neuts (auto) 5.4 (1.3-6.7) K/mm3 Absolute Nucleated RBC 0.000 (0.0-0.012) K/mm3 Nucleated RBC % 0.0 (0.0-0.2) % PT 13.2 (11.1-14.7) Seconds INR 1.0 APTT 27.8 (22.3-36.8) Seconds Sodium 139 (137-145) mmol/L Potassium 4.1 (3.4-5.0) mmol/L Chloride 106 (98-107) mmol/L Carbon Dioxide 21 L (22-30) mmol/L Anion Gap 12 (4-12) mmol/L BUN 22 H (9-20) mg/dL Creatinine 1.17 (0.7-1.3) mg/dL Estim Creat Clear Calc 57 ml/min Estimated GFR > 60 (59 - ) Glucose 104 (65-110) mg/dL POC Capillary Glucose 99 (65-105) mg/dl Calcium 9.7 (8.4-10.2) mg/dL Total Bilirubin 0.4 (0.2-1.3) mg/dL AST 22 (17-59) U/L ALT 22 (6-50) U/L Alkaline Phosphatase 84 (38-126) U/L Troponin I < 0.012 (0.000-0.034) ng/mL Total Protein 8.0 (6.3-8.2) g/dL Albumin 4.5 (3.5-5.1) g/dL Urine Color (Yellow) Urine Appearance (Clear) Urine pH (5.0-9.0) Ur Specific [place] (1.001-1.035) Urine Protein (Negative) mg/dL Urine Glucose (UA) (Negative) mg/dL Urine Ketones (Negative) mg/dL Ur Blood (Man) (Negative) Urine Nitrate (Negative) Urine Bilirubin (Negative) Urine Urobilinogen (<2.0) mg/dL Leukocyte Esterase Rfl (Negative) PABLO/UL Urine RBC (0-2) /hpf Urine WBC (0-3) /hpf Ur Squamous Epith Cells (Few) /hpf Urine Bacteria /hpf Urine Casts Influenza A (RT-PCR) Negative (Negative) Influenza B (RT-PCR) Negative (Negative) RSV (RT-PCR) Negative (Negative) SARS-CoV-2 RNA (RT-PCR) Negative (Negative) 07/22/24 Range/Units 02:57 WBC (4.5-10.0) K/mm3 RBC (4.6-6.20) M/mm3 Hgb (14.0-18.0) g/dL Hct (42.0-52.0) % MCV (80-100) fl MCH (26-34) pg MCHC (32-36) g/dl RDW (11.5-14.5) % Plt Count (150-375) k/mm3 MPV (7.4-10.4) fl Immature Gran % (Auto) (0-0.5) % Neut % (Auto) (45.5-73.1) % Lymph % (Auto) (18.3-44.2) % [place] % (Auto) (2.6-8.5) % Eos % (Auto) (0-4.4) % Baso % (Auto) (0.2-1.2) % Lymph # (Auto) (0.9-3.2) K/mm3 [place] # (Auto) (0.1-0.6) K/mm3 Eos # (Auto) (0-0.3) K/mm3 Baso # (Auto) (0.0-0.1) K/mm3 Abs Immat Gran (auto) (0.00-0.031) K/mm3 Absolute Neuts (auto) (1.3-6.7) K/mm3 Absolute Nucleated RBC (0.0-0.012) K/mm3 Nucleated RBC % (0.0-0.2) % PT (11.1-14.7) Seconds INR APTT (22.3-36.8) Seconds Sodium (137-145) mmol/L Potassium (3.4-5.0) mmol/L Chloride (98-107) mmol/L Carbon Dioxide (22-30) mmol/L Anion Gap (4-12) mmol/L BUN (9-20) mg/dL Creatinine (0.7-1.3) mg/dL Estim Creat Clear Calc ml/min Estimated GFR (59 - ) Glucose (65-110) mg/dL POC Capillary Glucose (65-105) mg/dl Calcium (8.4-10.2) mg/dL Total Bilirubin (0.2-1.3) mg/dL AST (17-59) U/L ALT (6-50) U/L Alkaline Phosphatase (38-126) U/L Troponin I (0.000-0.034) ng/mL Total Protein (6.3-8.2) g/dL Albumin (3.5-5.1) g/dL Urine Color Yellow (Yellow) Urine Appearance Clear (Clear) Urine pH 5.5 (5.0-9.0) Ur Specific [place] > 1.045 H (1.001-1.035) Urine Protein Trace (Negative) mg/dL Urine Glucose (UA) Negative (Negative) mg/dL Urine Ketones Negative (Negative) mg/dL Ur Blood (Man) Negative (Negative) Urine Nitrate Negative (Negative) Urine Bilirubin Negative (Negative) Urine Urobilinogen 0.2 (<2.0) mg/dL Leukocyte Esterase Rfl Negative (Negative) PABLO/UL Urine RBC 0-2 (0-2) /hpf Urine WBC 0-5 (0-3) /hpf Ur Squamous Epith Cells None seen (Few) /hpf Urine Bacteria None seen /hpf Urine Casts 0-2 Influenza A (RT-PCR) (Negative) Influenza B (RT-PCR) (Negative) RSV (RT-PCR) (Negative) SARS-CoV-2 RNA (RT-PCR) (Negative) <Darwin Luevano MD - Last Filed: 07/22/24 06:48> Discharge Plan Discharge Clinical Impression: Acute ischemic left posterior cerebral artery (RAILROAD COMMISSIONER) stroke <RASHAUN Orozco Last Filed: 07/22/24 04:09> Patient Disposition: Acute Care Hospital <RASHAUN Orozco Last Filed: 07/22/24 04:09> Condition: Stable <RASHAUN Orozco Last Filed: 07/22/24 04:09> Patient Language: Ukrainian <RASHAUN Orozco Last Filed: 07/22/24 04:09> Prescriptions: No Action tramadol 50 mg tablet 50 mg PO QID PRN (Reason: pain) Qty: 120 0RF omeprazole magnesium [Prilosec OTC] 20 mg tablet,delayed release (DR/EC) 20 mg PO DAILY amlodipine 5 mg tablet 5 mg PO DAILY cholecalciferol (vitamin D3) 125 mcg (5,000 unit) Tablet 125 mcg PO DAILY acetaminophen [Tylenol Arthritis Pain] 650 mg tablet extended release 650 mg PO Q8H Qty: 0 0RF Rx Instructions: per my instructions please aspirin 81 mg Tablet 81 mg PO DAILY baclofen 10 mg tablet See Rx Instructions .ROUTE .COMPLEX Qty: 90 0RF Dose Instruction: TAKE 1 TABLET BY MOUTH THREE TIMES A DAY NEEDED FOR MUSCLE PAIN Rx Instructions: TAKE 1 TABLET BY MOUTH THREE TIMES A DAY NEEDED FOR MUSCLE PAIN atorvastatin 20 mg tablet See Rx Instructions .ROUTE .COMPLEX Qty: 90 3RF Dose Instruction: TAKE 1 TABLET BY MOUTH EVERY DAY Rx Instructions: TAKE 40mg TABLET BY MOUTH EVERY DAY <Maki Singleton PA-C - Last Filed: 07/22/24 04:09> Follow-up/Referrals: Edson,KATHRYN Wheeler [Primary Care Provider] - <RASHAUN Orozco Last Filed: 07/22/24 04:09>
--- NOTE | 2024-07-22 01:52 | PC.NURSE ---
Patient in CT at this time.
[2024-07-22 02:12] LABS: Troponin I < 0.012 ng/mL (0.000-0.034)
--- NOTE | 2024-07-22 03:00 | PC.NURSE ---
Patient ambulated to the bathroom to provide urine sample. Patient had unsteady gait, was x1 assist. Patient states I just don't feel solid when I walk. Patient denies any pain. Patient assisted back in bed, connected to monitor and has call light within reach. Patient has family member by his side.
[2024-07-22 03:05] LABS: Add Urine Microscopic? YES; Appearance Urine Clear (Clear); Bacteria Urine None Seen /hpf; Bilirubin Urine Negative (Negative); Blood Urine Negative (Negative); Color Urine Yellow (Yellow); Glucose Urine UA Negative (Negative); Ketones Urine Negative (Negative); Leukocyte Esterase Ur Negative LEU/UL (Negative); Nitrate Urine Negative (Negative); Non Pathogenic Casts 0-2; Protein Urine Trace mg/dL (Negative); RBC Urine 0-2 /hpf (0-2); Specific Grav Ur > 1.045 (1.001-1.035); Squamous Epithelial Cell Urine None Seen /hpf (Few); Urobilinogen Urine 0.2 mg/dL (<2.0); WBC Urine 0-5 /hpf (0-3); pH Urine 5.5 (5.0-9.0)
[2024-07-22] MEDS: CLOPIDOGREL BISULFATE 75 MG TABLET PO (03:49)
[2024-07-22] MEDS: ASPIRIN 81 MG ENTERIC TABLET PO ×2 (03:49→10:21)
--- NOTE | 2024-07-22 04:00 | PC.NURSE ---
0354 Sujatha with [facility] transfer center states patient has been accepted to hospitalist at [facility] with consult to neurology, but no bed available. Sujatha given triage info upon request. PA notified of [facility] transfer center information and acceptance. PA on phone at this time with Radha.
[2024-07-22] MEDS: ATORVASTATIN 40 MG TABLET 80 MG PO (04:06)
--- NOTE | 2024-07-22 04:18 | PC.NURSE ---
0415 Called [phone] and spoke with Chi maintenance supervisor electrical RN at [facility] to give report. Chi request to call when patient leaves or when EMS if 15 minutes out so room is ready for patient. This RN verified address of transport destination.
--- NOTE | 2024-07-22 10:05 | PC.NURSE ---
Pharmacy called for ASA
--- NOTE | 2024-07-22 13:14 | PC.NURSE ---
Pt. c/o 12/28 lumbar back pain. Pt. takes meds at home for this pain. Meds in system under home meds. Verbal order given by MD Fajardo for home dose of baclofen and tramadol.
--- NOTE | 2024-07-22 14:12 | PC.NURSE ---
Pharmacy called for baclofen to be tubed to ER.
[2024-07-22] MEDS: traMADol HCL (*CRX) 50 MG TABLET PO (14:32)
[2024-07-22] MEDS: BACLOFEN 10 MG TABLET PO (14:33)
--- NOTE | 2024-07-22 14:44 | PC.NURSE ---
Report given to [facility]. All questions answered. Update provided to Radha MERINO that pt. is on his way.
--- NOTE | 2024-07-22 14:45 | PC.NURSE ---
at bedside and notified that EMS is here to take pt. to [facility]. verbalized enthusiasm.
== END 2024-07-22 14:50 | disposition short-term general hospital (02) ==
PROVIDERS: Emergency Medicine; Emergency Provider Physician Assistant; PCP Physician Assistant
DX: I63.332 Cerebral infarction due to thrombosis of left posterior cerebral artery (principal); R29.701 NIHSS score 1; Z20.822 Contact with and (suspected) exposure to COVID-19; I12.9 Hypertensive chronic kidney disease with stage 1 through stage 4 chronic kidney disease, or unspecified chronic kidney disease; N18.30 Chronic kidney disease, stage 3 unspecified; E78.5 Hyperlipidemia, unspecified; H53.47 Heteronymous bilateral field defects; K21.9 Gastro-esophageal reflux disease without esophagitis; Z96.653 Presence of artificial knee joint, bilateral; Z87.891 Personal history of nicotine dependence; Z98.42 Cataract extraction status, left eye; Z98.41 Cataract extraction status, right eye; Z79.82 Long term (current) use of aspirin; Z79.899 Other long term (current) drug therapy; R94.31 Abnormal electrocardiogram [ECG] [EKG]
CPT/HCPCS: 36415; 70496; 70498; 71045; 80053; 81001; 82948; 84484; 85025; 85610; 85730; 87637; 93005; 99285; A9270; Q9967